=== PATIENT | male | born 1950 | race Caucasian/White ===

== ENCOUNTER → 2018-05-09 | Outpatient (CLI) | payer OTHER | LOC: CARD 08:43 | PROVIDERS: ATTEND Internal Medicine Cardiovascular Disease | DX: I10 Essential (primary) hypertension (principal); E78.1 Pure hyperglyceridemia; J44.9 Chronic obstructive pulmonary disease, unspecified; E66.9 Obesity, unspecified | CPT/HCPCS: 93306 ==

== ENCOUNTER 2018-05-19 20:41 | Outpatient (CLI) | payer OTHER | END 2018-05-20 06:30 | disposition home or self-care (01) | LOC: SLEEP 20:41 | PROVIDERS: ATTEND Internal Medicine Cardiovascular Disease | DX: G47.33 Obstructive sleep apnea (adult) (pediatric) (principal); R06.83 Snoring; I10 Essential (primary) hypertension | CPT/HCPCS: 95810 ==

== ENCOUNTER 2018-06-05 13:42 | Outpatient (CLI) | payer OTHER | END 2018-06-05 14:15 | disposition home or self-care (01) | LOC: SLEEP 13:42 | PROVIDERS: ATTEND Otolaryngology Otolaryngology/Facial Plastic Surgery | DX: G47.33 Obstructive sleep apnea (adult) (pediatric) (principal); R06.83 Snoring; I10 Essential (primary) hypertension ==

== ENCOUNTER 2019-01-31 04:29 | Emergency (ER) | payer OTHER ==
[~2019-01-31] VITALS: Ht 190.5 cm; Wt 138.6 kg
[2019-01-31] MEDS ORDERED: METO1TAB10 (04:48)
[2019-01-31] MEDS ORDERED: LISI30TA5 (04:48)
[2019-01-31] MEDS ORDERED: TETANUS,DIPTH,PERTUSS P/F (BOOSTRIX) 0.5 ML VIAL IM ONE (05:00)
[2019-01-31] MEDS ORDERED: LIDOCAINE 1% INJ 20 ML 20 ML VIAL INJ ONE (05:00)
--- NOTE | 2019-01-31 05:36 | ED Fall/Injury ---
General Chief Complaint: Laceration Stated Complaint: CHIN LAC Nursing Triage Note: 2.5CM LACERATION TO CHIN. DENIES OTHER INJURIES/LOC Source: patient Exam Limitations: no limitations History of Present Illness Date Seen by Provider: Jan 31, 2019 Time Seen by Provider: 05:07 Initial Comments Patient presents to ER by private conveyance with significant other and chief complaint that she must of rolled out of bed in his sleep landing on his chin causing a laceration. He is having a little soreness in his neck but has declined imaging of his head or neck. The was not awake at the time. He is not on blood thinners but he does take blood pressure medicine. He's not having any numbness tenderness to his neck or weakness tingling to his extremities. He has no pain elsewhere. Allergies and Home Medications Allergies Coded Allergies: No Known Drug Allergies (Unverified , 04/28/10) Patient Home Medication List Home Medication List Reviewed: Yes Review of Systems Review of Systems Constitutional: No chills, No diaphoresis Eyes: Denies Blindness, Denies Blurred Vision Ears, Nose, Mouth, Throat: denies ear pain, denies ear discharge Respiratory: No cough, No short of breath Cardiovascular: No chest pain, No edema Gastrointestinal: No abdominal pain, No constipation, No diarrhea Genitourinary: No discharge, No dysuria Musculoskeletal: No back pain, No joint pain Skin: see HPI; No pruritus, No rash Past Rtqsffr-Ovvacy-Wxbqok Hx Patient Social History Alcohol Use: Denies Use Recreational Drug Use: No Smoking Status: Never a Smoker 2nd Hand Smoke Exposure: No Recent Foreign Travel: No Contact w/Someone Who Travel: No Recent Infectious Disease Expo: No Recent Hopitalizations: No Physical Abuse: No Sexual Abuse: No Mistreated: No Fear: No Immunizations Up To Date Tetanus Booster (TDap): More than 5yrs Seasonal Allergies Seasonal Allergies: No Past Medical History Surgeries: Yes Orthopedic Respiratory: No Cardiac: Yes Hypertension Neurological: No Genitourinary: No Gastrointestinal: No Musculoskeletal: No Endocrine: No HEENT: No Cancer: No Psychosocial: No Integumentary: No Blood Disorders: No Physical Exam Vital Signs Vital Signs - First Documented 01/31/19 04:41 Temp 36.8 Pulse 56 Resp 18 B/P (MAP) 178/73 (108) Pulse Ox 94 O2 Delivery Room Air Capillary Refill : Less Than 3 Seconds Height, Weight, BMI Height: 6'3.00" Weight: 285lbs. 0.0oz. 129.568833cd; 38.00 BMI Method: General Appearance: WD/WN, no apparent distress HEENT: PERRL/EOMI, normal ENT inspection, TMs normal, pharynx normal, other (negative for hemotympanum, juarez sign or raccoon eyes. Laceration submental approximately 3 cm, linear into the subcutaneous tissue with minimal bleeding) Neck: non-tender, full range of motion, supple, normal inspection Cardiovascular: normal peripheral pulses, regular rate, rhythm Respiratory: no respiratory distress, no accessory muscle use Peripheral Pulses: 2+ Radial Pulses (R), 2+ Radial Pulses (L) Gastrointestinal: non tender, soft Extremities: normal range of motion, non-tender, normal inspection Neurologic/Psychiatric: jukebox coin collector II-XII nml as tested, no motor/sensory deficits, alert, normal mood/affect, oriented x 3 Skin: normal color, warm/dry [place] Coma Score Best Eye Response: (4) Open Spontaneously Best Verbal Response: (5) Oriented Best Motor Response: (6) Obeys Commands [place] Total: 15 Procedures/Interventions Wound Location: Face Other Wound Location Midline submental Wound Length (cm): 3 Wound's Depth, Shape: linear, sub Q Wound Explored: clean Irrigated w/ Saline (ccs): 100 Betadine Prep?: Yes (chlorhexidine) Anesthesia: 1% Lidocaine Volume Anesthetic (ccs): 3 Wound Debrided: minimal Suture: Prolene Suture Size: 5-0 Number of Sutures: 4 Progress/Results/Core Measures Results/Orders My Orders Orders - RICHARD SANDERS Dipht,Pertuss(Acell),Tet Adult (Boostrix (01/31/19 05:00) Lidocaine 1% Inj 20 Ml (Xylocaine 1% Inj (01/31/19 05:00) Medications Given in ED Current Medications Medications Dose Ordered Sig/Junior Route Start Time Stop Time Status Last Admin Dose Admin Diphtheria/ Tetanus/Acell Pertussis 0.5 ml ONCE ONCE IM 01/31/19 05:00 01/31/19 05:01 DC 01/31/19 05:00 0.5 ML Lidocaine HCl 20 ml ONCE ONCE INJ 01/31/19 05:00 01/31/19 05:01 DC 01/31/19 05:00 20 ML Vital Signs/I&O 01/31/19 04:41 Temp 36.8 Pulse 56 Resp 18 B/P (MAP) 178/73 (108) Pulse Ox 94 O2 Delivery Room Air Blood Pressure Mean: 108 POS Progress Progress Note : Time: 05:[address] of the head and C-spine. Patient was not enthused about the idea just wanted to be sutured up. We discussed risks, benefits and alternatives and he would be reasonable to do an observation for 12 hours by family at home. Tetanus shot will be brought up-to-date today. Plan to use lidocaine and Prolene. Departure Impression Primary Impression: Fall Qualified Codes: W19.XXXA - Unspecified fall, initial encounter Additional Impression: Laceration Disposition: HOME, SELF-CARE Condition: Stable Departure-Patient Inst. Decision time for Depature: 05:48 Referrals: NO,LOCAL PHYSICIAN (PCP/Family) Primary Care Physician Patient Instructions: Laceration Repair With Stitches (DC) Add. Discharge Instructions: Keep the skin clean with regular soap and water. You may dress it if you're going to be in a michelle or dirty environment otherwise open to air is fine. Sutures need to be removed in 10-14 days. You may return to the ER no additional charge or you may go to your primary care doctor. If you have any neurologic symptoms of confusion, difficulty with speech, walking or other worrisome symptoms in the first 12 hours after the fall then you need to return to the ER. All discharge instructions reviewed with patient and/or family. Voiced understanding. RICHARD SANDERS Jan 31, 2019 05:36 POS
--- NOTE | 2019-01-31 05:45 | NUR ---
[address] SANDERS.
[2019-01-31 05:50] VITALS: BP 139/65
--- OUTSIDE RECORDS SUMMARY | 2019-02-25 22:41 | XMS REPORT | Continuity of Care Document ---
Author Organization Unknown Address Unknown Phone Unavailable Allergies Active Description Code Type Severity Reaction Onset Reported/Identified Relationship to Patient Clinical Status Yes No Known Drug Allergies [id number] Drug Allergy Unknown N/A 04/28/2010 Medications There is no data. Problems Date Dx Coded Attending Type Code Diagnosis Diagnosed By 04/28/2010 Ot 214.3 04/28/2010 Ot V76.51 03/25/2014 VERN DALLAS, OC Stewart Ot 571.8 03/25/2014 VERN DALLAS, OC A Ot 574.2 0 03/25/2014 VERN DALLAS, OC A Ot 592.0 03/25/2014 VERN DALLAS, OC A Ot 571.8 03/25/2014 VERN DALLAS, OC A Ot 574.2 0 03/25/2014 VERN DALLAS, OC A Ot 592.0 04/05/2014 VERN DALLAS, OC A Ot 571.8 04/05/2014 VERN DALLAS, OC A Ot 574.2 0 04/05/2014 VERN DALLAS, OC A Ot 592.0 04/07/2014 COSENS DO, GUY L Ot 041. 7 04/07/2014 COSENS DO, GUY L Ot 599. 0 04/07/2014 COSENS DO, GUY L Ot 041. 7 04/07/2014 COSENS DO, GUY L Ot 599. 0 04/08/2014 VERN DALLAS, OC A Ot 571.8 04/08/2014 VERN DALLAS, OC A Ot 574.2 0 04/08/2014 VERN DALLAS, OC A Ot 592.0 04/08/2014 COSENS DO, GUY L Ot 599. 0 04/08/2014 COSENS DO, GUY L Ot 041. 7 04/08/2014 COSENS DO, GUY L Ot 599. 0 04/08/2014 COSENS DO, GUY L Ot 599. 0 04/08/2014 COSENS DO, GUY L Ot 041. 7 04/08/2014 COSENS DO, GUY L Ot 599. 0 04/08/2014 COSENS DO, GUY L Ot 599. 0 04/08/2014 COSENS DO, GUY L Ot 041. 7 04/08/2014 COSENS DO, GUY L Ot 599. 0 04/08/2014 COSENS DO, GUY L Ot 041. 7 04/08/2014 COSENS DO, GUY L Ot 599. 0 04/09/2014 COSENS DO, GUY L Ot 041. 7 04/09/2014 COSENS DO, GUY L Ot 599. 0 04/10/2014 COSENS DO, GUY L Ot 041. 7 04/10/2014 COSENS DO, GUY L Ot 599. 0 04/11/2014 COSENS DO, GUY L Ot 041. 7 04/11/2014 COSENS DO, GUY L Ot 599. 0 04/11/2014 COSENS DO, GUY L Ot 041. 7 04/11/2014 COSENS DO, GUY L Ot 599. 0 04/12/2014 COSENS DO, GUY L Ot 041. 7 04/12/2014 COSENS DO, GUY L Ot 599. 0 04/13/2014 COSENS DO, GUY L Ot 041. 7 04/13/2014 COSENS DO, GUY L Ot 599. 0 05/17/2014 VERN DALLAS, OC Stewart Ot 571.8 05/17/2014 VERN DALLAS, OC A Ot 574.2 0 05/17/2014 VERN DALLAS, OC A Ot 592.0 06/24/2014 COSENS DO, GUY L Ot 599. 0 07/04/2014 COSENS DO, GUY L Ot 041. 7 PSEUDOMONAS INFECT NOS 07/04/2014 COSENS DO, GUY L Ot 599. 0 URIN TRACT INFECTION NOS 07/07/2014 COSENS DO, GUY L Ot 599. 0 07/30/2014 VERN DALLAS, OC Stewart Ot 571.8 07/30/2014 VERN DALLAS, OC Stewart Ot 574.2 0 07/30/2014 VERN DALLAS, OC A Ot 592.0 08/01/2014 COSENS DO, GUY L Ot 599. 0 08/01/2014 COSENS DO, GUY L Ot 041. 7 08/01/2014 COSENS DO, GUY L Ot 599. 0 12/01/2015 COSENS DO, GUY L Ot 599. 0 URIN TRACT INFECTION NOS 12/01/2015 COSENS DO, GUY L Ot 041. 7 PSEUDOMONAS INFECT NOS 12/01/2015 COSENS DO, GUY L Ot 599. 0 URIN TRACT INFECTION NOS 12/01/2015 Ot M79.661 PA IN IN RIGHT LOWER LEG 12/01/2015 Ot R22.41 LOC ALIZED SWELLING, MASS AND LUMP, RIGHT 12/01/2015 COSENS DO, GUY L Ot 599. 0 URIN TRACT INFECTION NOS 12/01/2015 COSENS DO, GUY L Ot 041. 7 PSEUDOMONAS INFECT NOS 12/01/2015 COSENS DO, GUY L Ot 599. 0 URIN TRACT INFECTION NOS 12/01/2015 Ot M79.661 PA IN IN RIGHT LOWER LEG 12/01/2015 Ot R22.41 LOC ALIZED SWELLING, MASS AND LUMP, RIGHT 01/10/2017 COSENS DO, GUY L Ot 599. 0 URIN TRACT INFECTION NOS 01/10/2017 COSENS DO, GUY L Ot 041. 7 PSEUDOMONAS INFECT NOS 01/10/2017 COSENS DO, GUY L Ot 599. 0 URIN TRACT INFECTION NOS 01/10/2017 Ot M79.661 PA IN IN RIGHT LOWER LEG 01/10/2017 Ot R22.41 LOC ALIZED SWELLING, MASS AND LUMP, RIGHT 01/17/2017 COSENS DO, GUY L Ot 599. 0 URIN TRACT INFECTION NOS 01/17/2017 COSENS DO, GUY L Ot 041. 7 PSEUDOMONAS INFECT NOS 01/17/2017 COSENS DO, GUY L Ot 599. 0 URIN TRACT INFECTION NOS 01/17/2017 Ot M79.661 PA IN IN RIGHT LOWER LEG 01/17/2017 Ot R22.41 LOC ALIZED SWELLING, MASS AND LUMP, RIGHT 05/07/2018 COSENS DO, GUY L Ot 599. 0 URIN TRACT INFECTION NOS 05/07/2018 COSENS DO, GUY L Ot 041. 7 PSEUDOMONAS INFECT NOS 05/07/2018 COSENS DO, GUY L Ot 599. 0 URIN TRACT INFECTION NOS 05/07/2018 Ot M79.661 PA IN IN RIGHT LOWER LEG 05/07/2018 Ot R22.41 LOC ALIZED SWELLING, MASS AND LUMP, RIGHT 05/09/2018 COSENS DO, GUY L Ot 599. 0 URIN TRACT INFECTION NOS 05/09/2018 COSENS DO, GUY L Ot 041. 7 PSEUDOMONAS INFECT NOS 05/09/2018 COSENS DO, GUY L Ot 599. 0 URIN TRACT INFECTION NOS 05/09/2018 Ot M79.661 PA IN IN RIGHT LOWER LEG 05/09/2018 Ot R22.41 LOC ALIZED SWELLING, MASS AND LUMP, RIGHT 05/10/2018 ALICIA GAGE MD Ot E66. 9 OBESITY, UNSPECIFIED 05/10/2018 ALICIA GAGE MD Ot E78. 1 PURE HYPERGLYCERIDEMIA 05/10/2018 ALICIA GAGE MD Ot I10 ESSENTIAL (PRIMARY) HYPERTENSION 05/10/2018 ALICIA GAGE MD Ot J44. 9 CHRONIC OBSTRUCTIVE PULMONARY DISEASE, U 05/20/2018 ALICIA GAGE MD Ot G47. 33 OBSTRUCTIVE SLEEP APNEA (ADULT) (PEDIATR 05/20/2018 ALICIA GAGE MD Ot I10 ESSENTIAL (PRIMARY) HYPERTENSION 05/20/2018 ALICIA GAGE MD Ot R06. 83 SNORING 05/22/2018 ALICIA GAGE MD Ot G47. 33 OBSTRUCTIVE SLEEP APNEA (ADULT) (PEDIATR 05/22/2018 ALICIA GAGE MD Ot I10 ESSENTIAL (PRIMARY) HYPERTENSION 05/22/2018 ALICIA GAGE MD Ot R06. 83 SNORING 06/05/2018 WILMAR BLACKWOOD MD Ot G47.33 OBSTRUCTIVE SLEEP APNEA (ADULT) (PEDIATR 06/05/2018 WILMAR BLACKWOOD MD Ot I10 ESSENTIAL (PRIMARY) HYPERTENSION 06/05/2018 WILMAR BLACKWOOD MD Ot R06.83 SNORING 06/06/2018 WILMAR BLACKWOOD MD Ot G47.33 OBSTRUCTIVE SLEEP APNEA (ADULT) (PEDIATR 06/06/2018 WILMAR BLACKWOOD MD Ot I10 ESSENTIAL (PRIMARY) HYPERTENSION 06/06/2018 WILMAR BLACKWOOD MD Ot R06.83 SNORING 08/07/2018 ALICIA GAGE MD Ot E66. 9 OBESITY, UNSPECIFIED 08/07/2018 MERARI DALLAS, ALICIA Caro Ot E78. 1 PURE HYPERGLYCERIDEMIA 08/07/2018 ALICIA GAGE MD Ot I10 ESSENTIAL (PRIMARY) HYPERTENSION 08/07/2018 MERARI DALLAS, ALICIA Caro Ot J44. 9 CHRONIC OBSTRUCTIVE PULMONARY DISEASE, U 08/08/2018 ALICIA GAGE MD Ot E66. 9 OBESITY, UNSPECIFIED 08/08/2018 ALICIA GAGE MD Ot E78. 1 PURE HYPERGLYCERIDEMIA 08/08/2018 ALICIA GAGE MD Ot I10 ESSENTIAL (PRIMARY) HYPERTENSION 08/08/2018 MERARI DALLAS, ALICIA Caro Ot J44. 9 CHRONIC OBSTRUCTIVE PULMONARY DISEASE, U 08/08/2018 ALICIA GAGE MD Ot E66. 9 OBESITY, UNSPECIFIED 08/08/2018 MERARI DALLAS, ALICIA Caro Ot E78. 1 PURE HYPERGLYCERIDEMIA 08/08/2018 ALICIA GAGE MD Ot I10 ESSENTIAL (PRIMARY) HYPERTENSION 08/08/2018 ALICIA GAGE MD Ot J44. 9 CHRONIC OBSTRUCTIVE PULMONARY DISEASE, U 01/31/2019 RICHARD SANDERS MD, Ot I10 ESSENTIAL (PRIMARY) HYPERTENSION 01/31/2019 RICHARD SANDERS MD Ot R40.2142 COMA SCALE, EYES OPEN, SPONTANEOUS, EMR 01/31/2019 RICHARD SANDERS MD Ot R40.2252 COMA SCALE, BEST VERBAL RESPONSE, ORIENT 01/31/2019 RICHARD SANDERS MD Ot R40.2362 COMA SCALE, BEST MOTOR RESPONSE, OBEYS C 01/31/2019 RICHARD SANDERS MD Ot S01.81XA LACERATION W/O FOREIGN BODY OF OTH PART 01/31/2019 RICHARD SANDERS MD Ot W06.XXXA FALL FROM BED, INITIAL ENCOUNTER 01/31/2019 RICHARD SANDERS MD Ot Z23 ENCOUNTER FOR IMMUNIZATION 02/12/2019 COSENS DO, GUY L Ot 599. 0 URIN TRACT INFECTION NOS 02/12/2019 COSENS DO, GUY L Ot 041. 7 PSEUDOMONAS INFECT NOS 02/12/2019 COSENS DO, GUY L Ot 599. 0 URIN TRACT INFECTION NOS 02/12/2019 Ot M79.661 PA IN IN RIGHT LOWER LEG 02/12/2019 Ot R22.41 LOC ALIZED SWELLING, MASS AND LUMP, RIGHT 02/12/2019 ALICIA GAGE MD Ot E66. 9 OBESITY, UNSPECIFIED 02/12/2019 ALICIA GAGE MD Ot E78. 1 PURE HYPERGLYCERIDEMIA 02/12/2019 ALICIA GAGE MD Ot I10 ESSENTIAL (PRIMARY) HYPERTENSION 02/12/2019 ALICIA GAGE MD Ot J44. 9 CHRONIC OBSTRUCTIVE PULMONARY DISEASE, U 02/12/2019 DORON WALL MD Ot S01.81XD LACERATION W/O FOREIGN BODY OF OTH PART 02/12/2019 DORON WALL MD Ot X58.XXXD EXPOSURE TO OTHER SPECIFIED FACTORS, SUB 02/18/2019 COSENS DO, GUY L Ot 599. 0 URIN TRACT INFECTION NOS 02/18/2019 COSENS DO, GUY L Ot 041. 7 PSEUDOMONAS INFECT NOS 02/18/2019 COSENS DO, GUY L Ot 599. 0 URIN TRACT INFECTION NOS 02/18/2019 Ot M79.661 PA IN IN RIGHT LOWER LEG 02/18/2019 Ot R22.41 LOC ALIZED SWELLING, MASS AND LUMP, RIGHT 02/18/2019 ALICIA GAGE MD Ot E66. 9 OBESITY, UNSPECIFIED 02/18/2019 ALICIA GAGE MD Ot E78. 1 PURE HYPERGLYCERIDEMIA 02/18/2019 ALICIA GAGE MD Ot I10 ESSENTIAL (PRIMARY) HYPERTENSION 02/18/2019 ALICIA GAGE MD, Ot J44. 9 CHRONIC OBSTRUCTIVE PULMONARY DISEASE, U Procedures There is no data. Results There is no data. Encounters ACCT No. Visit Date/Time Discharge Status Pt. Type Provider Facility Loc./Unit Complaint [id number] 02/12/2019 08:54:00 019 09:35:00 DIS Emergency DORON WALL MD [facility] ER STITCH REMOVAL [id number] 01/31/2019 04:30:00 019 05:51:00 DIS Emergency RICHRAD SANDERS MD [facility] ER CHIN LAC [id number] 06/05/2018 13:42:00 019 14:19:00 DIS Outpatient MERCED DALLAS, WILMAR Chatman [facility] SLEEP MARYANN G47.33 [id number] 05/19/2018 20:41:00 06:30:00 DIS Outpatient MERARI DALLAS, ALICIA Caro [facility] SLEEP MARYANN G47.33 [id number] 05/09/2018 08:43:00 23:59:59 CLS Outpatient ALICIA GAGE MD [facility] CARD HTN, HYPERTRIGLYCERIDEM IA [id number] 07/05/2014 00:08:00 015 23:59:59 CLS Preadmit GUY ASCENCIO DO [facility] UTI [id number] 04/13/2014 09:44:00 015 23:59:59 CLS [facility]patient [facility] [id number] 04/05/2014 10:21:00 015 23:59:59 CLS Outpatient GUY ASCENCIO DO L [facility] LAB UTI [id number] 04/05/2014 11:33:00 015 11:33:00 CAN Preadmit GUY ASCENCIO DO L [facility] IVTHERAPY [id number] 03/21/2014 08:10:00 015 23:59:59 CLS Outpatient OC PORRAS MD [facility] RAD [id number] 02/04/2015 11:01:00 Document Registration [id number] 04/28/2010 08:58:00 Document Registration
== END 2019-01-31 05:51 | disposition home or self-care (01) ==
LOC: EDUNIT# 04:29 → ER 04:30
DX: S01.81XA Laceration without foreign body of other part of head, initial encounter (principal); I10 Essential (primary) hypertension; R40.2142 Coma scale, eyes open, spontaneous, at arrival to emergency department; R40.2252 Coma scale, best verbal response, oriented, at arrival to emergency department; R40.2362 Coma scale, best motor response, obeys commands, at arrival to emergency department; Z23 Encounter for immunization; W06.XXXA Fall from bed, initial encounter
CPT/HCPCS: 12013; 90471; 90715

== ENCOUNTER 2019-02-12 08:53 | Emergency (ER) | payer OTHER ==
[~2019-02-12] VITALS: Ht 74 cm; Wt 143.5 kg
[~2019-02-12 08:53] MED LIST: LISI30TA5; METO1TAB10
[2019-02-12 09:35] VITALS: BP 176/81
== END 2019-02-12 09:35 | disposition home or self-care (01) ==
LOC: EDUNIT# 08:53 → ER 08:54
DX: S01.81XD Laceration without foreign body of other part of head, subsequent encounter (principal); X58.XXXD Exposure to other specified factors, subsequent encounter

== ENCOUNTER 2019-05-22 08:00 | Inpatient (IN) | payer OTHER, MEDICARE ==
[~2019-05-22] VITALS: Ht 193 cm; Wt 145.0 kg
--- NOTE | 2019-06-26 11:04 | HISTORY AND PHYSICAL ---
DATE OF SERVICE: DATE OF ADMISSION: 07/03/2019 This will be for inpatient admission on 07/03/2019 for left total knee arthroplasty. The patient will require regular inpatient admission due to comorbidities, pain management, need for physical therapy and gait abnormalities. HISTORY: The patient is a 68-year-old gentleman with long-standing progressive left knee pain. He has undergone treatment with extensive measures including injections, anti-inflammatories, arthroscopy without relief. Radiographs revealed severe medial and patellofemoral joint space narrowing and osteophyte formation. He has also undergone physical therapy. He reports activity limitations because of the knee and failure to improve with conservative measures, the patient elected to proceed with surgical intervention. REVIEW OF SYSTEMS: No chest pain, no shortness of breath, no dysuria. PAST MEDICAL HISTORY: Hypertension, sleep apnea, and enlarged heart. PAST SURGICAL HISTORY: Knee and left rotator cuff repair. FAMILY HISTORY: Noncontributory. PRIMARY CARE PROVIDER: None listed. MEDICATIONS: Metoprolol, lisinopril. ALLERGIES: No known drug allergies. SOCIAL HISTORY: The patient denies alcohol and tobacco use. PHYSICAL EXAMINATION: GENERAL: The patient is well developed, well nourished, in no acute distress. HEENT: Normocephalic, atraumatic. Pupils are equal, round, reactive to light. Oropharynx is clear. NECK: Supple, no lymphadenopathy. LUNGS: Clear to auscultation bilaterally. HEART: Regular rate and rhythm. ABDOMEN: Soft, nontender, nondistended. EXTREMITIES: The patient ambulates with an antalgic gait. Range of motion 0/4/120. No varus valgus laxity. Negative anterior and posterior drawer. His patella tracks well. He is tender along his medial joint line. Has pain medially with Jose's. IMPRESSION: Severe left knee osteoarthritis, unresponsive to conservative measures. PLAN: Left total knee arthroplasty. The risks, benefits, options, ramifications and recovery were discussed at length with the patient. He understands and wishes to proceed. Job ID: [id number] DocumentID: [id number] Dictated Date: 06/25/2019 13:44:17 Architectural Renderer Date: 06/25/2019 14:10:56 Dictated By: WILMAR CURRY MD
[2019-06-28] MEDS ORDERED: LISI40TA PO (12:09)
[2019-06-28] MEDS ORDERED: MULT-1136 PO (12:09)
[2019-06-28] MEDS ORDERED: MTP25TSR PO (12:09)
[2019-06-28] MEDS ORDERED: HYDR25TA4 PO (12:09)
[2019-06-28] MEDS ORDERED: VITA1CAP PO (12:09)
[2019-06-28] MEDS ORDERED: POTA99TA21 PO (12:09)
[2019-07-03] VITALS (11 sets, daily range): BP systolic 127–161; BP diastolic 63–106
[2019-07-03] MEDS ORDERED: MIDAZOLAM 2 MG/2 ML (VERSED) VIAL ONE (06:49)
[2019-07-03] MEDS ORDERED: fentaNYL INJECTION 100 MCG/2 ML AMP ONE (06:49)
[2019-07-03] MEDS: LACTATED RINGERS 1,000 ML IV PRN ×2 (07:09→07:55)
[2019-07-03] MEDS ORDERED: CEFUROXIME INJECTION 1,500 MG in WATER (STERILE) FOR INJECTION 15 ML IV ONE (07:15)
--- NOTE | 2019-07-03 07:29 | Progress Note-Pre Operative ---
Pre-Operative Progress Note H&P Reviewed The H&P was reviewed, patient examined and no changes noted. Date Seen by Provider: July 03, 2019 Time Seen by Provider: 07:20 Date H&P Reviewed: July 03, 2019 Time H&P Reviewed: 07:15 Pre-Operative Diagnosis: left knee primary osteoarthritis WILMAR CURRY MD July 03, 2019 07:29
[2019-07-03] MEDS ORDERED: ONDANSETRON 4 MG/2 ML (SDV) Z0FRAN IVP PRN ×2 (07:30→10:00)
[2019-07-03] MEDS ORDERED: diphenhydrAMINE 50 MG/ML INJ (BENADRYL) IVP PRN (07:30)
[2019-07-03] MEDS ORDERED: INTRA-ARTICULAR IU ONE ×5 (07:30)
[2019-07-03] MEDS ORDERED: ACETAMINOPHEN 325 MG TABLET PO PRN (07:30)
[2019-07-03] MEDS ORDERED: CATHETER FLUSH 10 ML SYR IV PRN (07:30)
--- NOTE | 2019-07-03 07:30 | Progress Note-Post Operative ---
Post-Operative Progess Note Surgeon (s)/Infrastructure Engineer (s) Surgeon WILMAR CURRY MD Infrastructure Engineer: Frank Sarah Pre-Operative Diagnosis left knee primary osteoarthritis Post-Operative Diagnosis left knee primary ostreoarthritis Procedure & Operative Findings Date of Procedure 07/03/19 Procedure Performed/Findings left total knee arthroplasty Anesthesia Type GETA Estimated Blood Loss Estimated blood loss (mL): minimal Specimens/Packing Specimens Removed none Packing: none WILMAR CURRY MD July 03, 2019 07:30
[2019-07-03] MEDS ORDERED: OXYC1TAB87 PO (07:31)
--- NOTE | 2019-07-03 07:33 | D/C HH Face to Face Order ---
D/C Face to Face Orders Reconcile Patient Problems Problems Reviewed?: Yes Instructions for Patient [facility], Patient Instructions/FollowUp: three weeks Physician to follow Patient: three weeks Discharge Diet for Home: No Restrictions Patient Data-Allergies,Ht & Wt Patient Allergies: Coded Allergies: No Known Drug Allergies (Unverified , 06/28/19) Height (Feet): 6 Height (Inches): 3.00 Weight (Pounds): 285 Weight (Ounces): 0.0 Home Health Need/Face to Face Date of Face to Face: July 03, 2019 Clinical Findings: Instability, Muscle weakness, Pain with ambulation, Unsteady gait I have seen Pt [id number]: Yes Discharged To: Home Diagnosis/Conditions: left total knee arthroplasty Patient is Homebound due to: Dave fall risk due to instabilty, Muscle weakness, Pain w/ambulation Homebound Status Due to the above stated illness, injury or surgical procedure (medical condition or diagnosis) and associated clinical findings, the patient is homebound because of his/her inability to leave home except with aid of a supportive device and/or person AND leaving the home requires a considerable and taxing effort or is medically contraindicated. Pt req the following assistanc: [facility] Nursing Orders Home Health Services Order: Physical Therapy-Evaluate & Treat DC left knee deneen and apply steristrips 07/17/19 Therapy Orders Therapy Orders: Physical Therapy, PT to assess for OT Therapy Specific Orders: Eval assistive deivces, Teach enviro modifications/safety, Gait training, Increase strength/endurance, Provider maintenance therapy, Restore ROM Certify Stmt I certify that this patient is under my care and that I, a nurse practitioner or a physician; a library media assistant working with me, had a face to face encounter that - meets the physician face to face encounter requirements with this patient as dated. WILMAR CURRY MD July 03, 2019 07:33
[2019-07-03] MEDS ORDERED: oxyCODONE/APAP 5/325MG (PERCOCET 5) TABLET PO PRN (07:45)
[2019-07-03] MEDS ORDERED: HYDROmorphone 2 MG/ML VIAL (DILAUDID) ONE (07:55)
[2019-07-03] MEDS ORDERED: ONDANSETRON 4 MG/2 ML (SDV) Z0FRAN ONE (09:14)
[2019-07-03] MEDS ORDERED: LIDOCAINE PF 2% 5 ML (XYLOCAINE) VIAL ONE (09:14)
[2019-07-03] MEDS ORDERED: meTOprolol 5 MG/5 ML (LOPRESSOR) VIAL ONE ×2 (09:14→10:07)
[2019-07-03] MEDS ORDERED: SEVOFLURANE (ULTANE) 15 ML INHAL SOLN ONE ×5 (09:14→09:16)
[2019-07-03] MEDS ORDERED: BUPIVACAINE 0.5% 30 ML (SENSORCAINE) VIAL ONE (09:28)
[2019-07-03] MEDS ORDERED: diphenhydrAMINE 50 MG/ML INJ (BENADRYL) ONE (09:49)
[2019-07-03] MEDS ORDERED: diphenhydrAMINE 50 MG/ML INJ (BENADRYL) IM PRN (10:00)
[2019-07-03] MEDS ORDERED: HYDROmorphone 2 MG/ML VIAL (DILAUDID) IV ONE (10:00)
[2019-07-03] MEDS ORDERED: meTOprolol 5 MG/5 ML (LOPRESSOR) VIAL IV ONE (10:15)
--- NOTE | 2019-07-03 10:27 | Diagnostic Imaging Report ---
EXAMINATION: Left knee at 1002h. INDICATION: Postop AP and lateral views of the left knee were obtained from the OR. There are no prior studies available for comparison. There is a total knee prosthesis in place. The prosthetic components appear in good position. There is no fracture or acute bony abnormality noted. There is some gas in the soft tissues along the anterior aspect of the knee joint. Skin deneen are also evident. IMPRESSION: Stable post operative left knee. Dictated by: Dictated on workstation # [id number]
--- NOTE | 2019-07-03 10:40 | NUR ---
patient to floor at this time via cart accompanied by BJ Gaffney. This RN will assume care of this patient at this time.
--- NOTE | 2019-07-03 10:40 | NUR ---
SUSANA CEDILLO admitted to room 417-1, with an admitting diagnosis of left total knee replacement, on 07/03/19 from OR via cart, accompanied by BJ rosales.SUSANA CEDILLO introduced to surroundings, call light, bed controls, phone, TV, temperature control, lights, meal times, smoking policy, visitor policy, side rail policy, bathrooms and showers. Patient Rights given to patient in the handbook. SUSANA CEDILLO verbalizes understanding that [facility] is not responsible for the loss or damage to any personal effects or valuables that are kept in the patients posession during their hospitalization. SUSANA CEDILLO verbalizes understanding of Interdisciplinary Patient Education. Patient and/or family were informed about the Rapid Response Team and its purpose.
[2019-07-03] MEDS ORDERED: morphine PCA 100 MG/100 ML BAG IV ONE (10:48)
[2019-07-03] MEDS ORDERED: NS IV 1000 ML 1,000 ML ONE (10:48)
--- NOTE | 2019-07-03 10:56 | Progress Note ---
Standard Progress Note Progress Notes/Assess & Plan Date Seen by a Provider: July 03, 2019 Time Seen by a Provider: 10:54 Progress/Assessment & Plan post op check no complaints radiographs--HW well positioned without fracture LLE--2 plus DP pulse with brisk cap refill. intact DF and PF of toes and ankle with intact sensation to light touch throughout s/p LTKA mobilize as able WILMAR CURRY MD July 03, 2019 10:56
[2019-07-03] MEDS: morphine PCA 100 MG/100 ML BAG IV PRN (11:26)
[2019-07-03] MEDS: SENNA W/DOCUSATE (SENOKOT S) TABLET PO SCH ×2 (12:03→21:04)
[2019-07-03] MEDS: NS IV 1000 ML 1,000 ML IV SCH ×3 (12:03→23:37)
--- NOTE | 2019-07-03 13:56 | Physical Therapy Evaluation ---
PT Evaluation-General Medical Diagnosis Admission Date July 03, 2019 at 06:30 Medical Diagnosis: left TKA Onset Date: July 03, 2019 Therapy Diagnosis Therapy Diagnosis: impaired mobility, strength, endurance, ROM Height/Weight Height (Feet): 6 Height (Inches): 3.00 Weight (Pounds): 285 Weight (Ounces): 0.0 Precautions Precautions/Isolations: Fall Prevention, Standard Precautions Weight Bear Status Left Lower Extremity: Left Weight Bearing/Tolerated Referral Physician: Jorge Reason for Referral: Evaluation/Treatment Medical History Additional Medical History PAST MEDICAL HISTORY: Hypertension, sleep apnea, and enlarged heart. PAST SURGICAL HISTORY: Knee and left rotator cuff repair. Social History Current Living Status: Spouse Entry Into Home: Stairs With Railing PT Steps Into Home: 4 Prior Prior Level of Function SCALE: Activities may be completed with or without assistive devices. 8-Kyxzqobsac-oemvcsd completes the activity by him/herself with no assistance from a helper. 5-Set-up or Clean-up Assistance-helper sets up or cleans up; patient completes activity. [place] assists only prior to or following the activity. 4-Supervision or Touching Assistance-helper provides verbal cues and/or touching/steadying and/or contact guard assistance as patient completes activity . Assistance may be provided throughout the activity or intermittently. 3-Partial/Moderate Assistance-helper does LESS THAN HALF the effort. [place] lifts, holds or supports trunk or limbs, but provides less than half the effort. 2-Substantial/Maximal Assistance-helper does MORE THAN HALF the effort. [place] lifts or holds trunk or limbs and provides more than half the effort. 6-Htmmowuti-wvvoni does ALL the effort. Patient does none of the effort to complete the activity. Or, the assistance of 2 or more helpers is required for the patient to complete the activity. If activity was not attempted, code reason: 7-Patient Refused. 9-Not Applicable-not attempted and the patient did not perform the activity before the current illness, exacerbation or injury. 10-Not Attempted due to Environmental Limitations-(lack of equipment, weather restraints, etc.). 88-Not Attempted due to Medical Conditions or Safety Concerns. Bed Mobility: 6 Transfers (B,C,W/C): 6 Gait: 6 Stairs: 6 Indoor Mobility (Ambulation): Independent Stairs: Independent PT Evaluation-Current Subjective Patient in bed pre tx, agrees to PT, states he doesn't have pain and his left leg is a little numb. Pt/Family Goals to be independent at home Objective Patient Orientation: Person, Place, Situation Attachments: IV ROM/Strength ROM Lower Extremities left knee flexion 70 degrees, extension +5 degrees Sensory Vision: Functional Hearing: Functional Sensation Right Lower Extremit: Intact Sensation Left Lower Extremity: Intact Transfers Roll Left to Right (QC): 6 Sit to Lying (QC): 3 Lying to Sitting/Side of Bed(Q: 3 Sit to Stand (QC): 4 Chair/Fjt-mi-Pxllq Xfer(QC): 4 Toilet Transfer (QC): 4 Patient needs min assist with left leg getting into and out of bed, CGA for transfers, slightly unsteady but no complaints of light headedness or dizziness. Gait Does the Patient Walk?: Yes Mode of Locomotion: Walk Anticipated Mode of Locomotion: Walk Walk 10 feet (QC): 4 Distance: 12'x2 Gait Assistive Device: FWW Comments/Gait Description Patient ambulated to the bathroom and back, slightly unsteady, wide SARA, slow ambulation Wheelchair Training Does the Pt Use a Wheelchair?: No Balance Sitting Static: Normal Sitting Dynamic: Good Standing Static: Fair Standing Dynamic: Fair Treatment supine LLE total knee protocol x10 (AP, QS, HS, SAQ, SLR) Assessment/Needs Patient has impaired mobility, strength, endurance, ROM. He is unsteady during ambulation. Patient in bed post tx with nurse call, phone, tray, all needs met, SCD's on and CPM donned and fit to leg and set to 60/-2 degrees. Rehab Potential: Fair PT Jail Goals Guest Services Director Goals PT Jail Goals Time Frame: July 10, 2019 Roll Left & Right (QC): 6 Sit to Lying (QC): 6 Lying-Sitting on Side/Bed(QC): 6 Sit to Stand (QC): 6 Chair/Uqz-zk-Knctg Xfer(QC): 5 Walk 10 feet (QC): 5 Walk 50ft with 2 Turns (QC): 5 Walk 150 ft (QC): 5 1 Step (curb) (QC): 4 4 Steps (QC): 4 PT Plan Problem List Problem List: Activity Tolerance, Functional Strength, Safety, Balance, Gait, Transfer, Bed Mobility, ROM Treatment/Plan Treatment Plan: Continue Plan of Care Treatment Plan: Bed Mobility, Education, Functional Activity Wicho, Functional Strength, Gait, Safety, Therapeutic Exercise, Transfers Treatment Duration: July 10, 2019 Frequency: 11 times per week Estimated Hrs Per Day: .25 hour per day Patient and/or Family Agrees t: Yes Safety Risks/Education Patient Education: Gait Training, Transfer Techniques, Reviewed Use of Ice, Correct Positioning, Safety Issues Teaching Recipient: Patient Teaching Methods: Demonstration, Discussion Response to Teaching: Reinforcement Needed Discharge Recommendations Plan Patient will perform bed mobility and transfer training, balance and endurance training, functional strengthening, stair training, gait training, and education, to improve functional mobility and independence at home. Therapy Discharge Recommendati: Home & Family Time/GCodes Time In: 1310 Time Out: 1345 Total Billed Treatment Time: 35 Total Billed Treatment 1 visit SUE 15' FA 20' BRENNAN SOSA PT July 03, 2019 13:56
--- NOTE | 2019-07-03 14:20 | OPERATIVE REPORT ---
DATE OF SERVICE: 07/03/2019 PREOPERATIVE DIAGNOSIS: Left knee primary osteoarthritis. POSTOPERATIVE DIAGNOSIS: Left knee primary osteoarthritis. PROCEDURE: Left total knee arthroplasty. SURGEON: Yuan Curry MD HEALTH TECHNICIAN: Frank Concepcion, who assisted throughout the procedure and closed the incision. ANESTHESIA: General endotracheal by Ramya Huffman CRNA. TOURNIQUET TIME: Approximately 75 minutes at 300 mmHg. ESTIMATED BLOOD LOSS: Minimal. DRAINS: None. COMPLICATIONS: None. POSTOPERATIVE PLAN: Routine protocol. The patient was transferred to the recovery room awake and in stable condition. MATERIALS: Microport cemented size 7 femur, cemented size 7 tibia with 10 mm insert and a cemented size 35 patellar button. STATEMENT OF MEDICAL NECESSITY: The patient is a 68-year-old gentleman with progressively worsening left knee pain. He has undergone treatment with injections, arthroscopy, anti-inflammatories and rest without relief. Due to functional impairment and failure to improve with conservative measures, the patient elected to proceed with surgical intervention. DESCRIPTION OF PROCEDURE: After risks and benefits of procedure were discussed and questions were answered, an informed consent was signed and placed on chart. The operative site was confirmed in the preoperative holding area initialed by the surgeon. The patient was then transferred to the operating room and after adequate levels of general endotracheal anesthetic were obtained, a timeout was called, confirming the operative site. Left lower extremity was prepped and draped in the usual sterile fashion. With the leg elevated and the knee flexed, the tourniquet was inflated to 300 mmHg. Standard anterior approach was utilized. Hemostasis was obtained with cautery. Medial parapatellar arthrotomy was performed leaving 1 cm cuff on the patella for later reattachment. A portion of the fat pad was resected. A subperiosteal release was performed on the proximal medial tibia being careful to stay on the bony surface. The ACL was resected. The intramedullary guide was passed into the femoral canal. The distal cutting block was placed and distal cut was made. Femur was sized to a size 7 cutting block was placed parallel to the epicondylar axis and cuts were made from posterior to anterior. Subperiosteal release was then carefully performed on the posterior distal femur, being careful to stay on the bony surface. Intramedullary guide was then passed into the tibia. The cutting block was placed. Drop liana transected the intermalleolar axis and the cut was made. The baseplate was placed and pinned into position. The drop liana transected the intermalleolar axis. This was then prepared with the drill and keel punch. The femoral trial was placed. The trochlear cut was made. The 10 mm insert was placed. The PCL was partially released. The patella was then prepared using the freehand technique by resecting 10 mm off the undersurface. The peg guide was placed and peg holes were drilled. The patellar trial was placed. The patella tracked well. There was no anterior/posterior laxity in flexion or extension. There is no varus valgus laxity in flexion or extension. Full extension was easily obtained, 120 degrees of flexion with gravity was easily obtained. The trials were removed. The joint was irrigated with pulse lavage. Periarticular block was placed in the posterior capsule, medial and lateral retinaculum extensor mechanism in subcutaneous tissues. The bone ends were irrigated and dried. The tibial baseplate was cemented into position. Excessive cement was removed. Superior surface was irrigated and dried. The polyethylene insert was placed. The distal femur was irrigated and dried and the femoral prosthesis was cemented into position. Excessive cement was removed. The knee was brought out into full extension until cement had cured. The undersurface of the patella was irrigated and dried. The patellar button was cemented into position. Excessive cement was removed. Once the cement had cured, the knee was taken through range of motion. Full extension was easily obtained under 20 degrees of flexion with gravity was easily obtained. The patella tracked well. There was no anterior/posterior or medial/lateral laxity in flexion or extension. The joint was further irrigated with pulse lavage. A total of 6 liters was used throughout the procedure. The arthrotomy was closed with #2 Tevdek in rwfrbt-bf-jmyfg interrupted fashion. Knee was flexed and the repair was stable. The subcutaneous tissues were irrigated. A 0 Vicryl was used for the deep subcutaneous tissue, 2-0 Vicryl was used for the superficial subcutaneous tissue, deneen used on the skin. A soft dressing was applied. The tourniquet was deflated. The patient was transferred to the recovery room awake and in stable condition. Job ID: [id number] DocumentID: [id number] Dictated Date: 07/03/2019 09:51:36 Senior Procurement Manager Date: 07/03/2019 14:19:49 Dictated By: YUAN CURRY MD
[2019-07-03] MEDS: CEFUROXIME INJECTION 750 MG in WATER (STERILE) FOR INJECTION 10 ML IV SCH ×2 (14:33→23:37)
[2019-07-03] MEDS: oxyCODONE/APAP 5/325MG (PERCOCET 5) TABLET PO PRN ×2 (16:28→22:49)
[2019-07-04] VITALS: BP 137/79
[2019-07-04 04:05] VITALS: BP 111/71
[2019-07-04 06:08] LABS: HEMOGLOBIN 13.1 G/DL (13.3-17.7)
--- NOTE | 2019-07-04 07:57 | Progress Note ---
Standard Progress Note Progress Notes/Assess & Plan Date Seen by a Provider: July 04, 2019 Time Seen by a Provider: 07:56 Progress/Assessment & Plan post op check no complaints radiographs--HW well positioned without fracture LLE--2 plus DP pulse with brisk cap refill. intact DF and PF of toes and ankle with intact sensation to light touch throughout s/p LTKA mobilize as able Final Diagnosis no complaints Vital Signs Date Time Temp Pulse Resp B/P (MAP) Pulse Ox O2 Delivery O2 Flow Rate FiO2 07/04/19 06:50 18 07/04/19 04:05 37.0 100 21 111/71 (84) 94 NIV CPAP 07/04/19 00:00 36.7 99 21 137/79 (98) 91 Room Air 07/03/19 22:42 18 07/03/19 20:45 Room Air 07/03/19 20:11 37.0 82 20 135/68 (90) 95 Room Air 07/03/19 15:29 37.3 66 20 127/63 (84) 94 Room Air 07/03/19 12:55 92 Room Air 07/03/19 12:36 92 Room Air 3.00 07/03/19 11:16 36.4 58 20 154/77 (102) 93 Room Air 07/03/19 10:40 NIV CPAP 07/03/19 10:40 36.1 20 161/88 (112) 96 NIV CPAP 07/03/19 10:30 NIV CPAP 07/03/19 10:30 20 139/94 (109) 57 NIV CPAP 07/03/19 10:20 20 139/94 (109) 100 OxyMask 3 07/03/19 10:15 OxyMask 6 07/03/19 10:10 20 133/106 (115) 100 OxyMask 6 07/03/19 10:00 OxyMask 6 07/03/19 10:00 20 129/99 (109) 98 OxyMask 6 07/03/19 09:50 20 133/98 (110) 98 OxyMask 6 07/03/19 09:45 OxyMask 6 07/03/19 09:39 36.1 20 128/83 (98) 98 OxyMask 6 07/03/19 09:39 OxyMask 6 I & O 07/04/19 07:00 Intake Total 3235 ml Output Total 175 ml Balance 3060 ml Laboratory Tests Test 07/04/19 05:50 Range/Units Hemoglobin 13.1 L 13.3-17.7 G/DL Hematocrit 41 40-54 % LLE--dressing intact. No calf tenderness. Neg Sofiya's s/p LTKA doing well PT/OT WILMAR CURRY MD July 04, 2019 07:57
[2019-07-04 08:00] VITALS: BP 109/71
[2019-07-04] MEDS: ASPIRIN E.C. 81 MG (ECOTRIN) TAB PO SCH (08:40)
[2019-07-04] MEDS: ENOXAPARIN 30 MG/0.3 ML (LOVENOX) SYR SC SCH ×2 (08:40→21:34)
[2019-07-04] MEDS: MULTIVIT W/MINERALS TAB (THERAGRAN M) PO SCH (08:40)
[2019-07-04] MEDS: SENNA W/DOCUSATE (SENOKOT S) TABLET PO SCH ×2 (08:40→21:34)
[2019-07-04] MEDS: oxyCODONE/APAP 5/325MG (PERCOCET 5) TABLET PO PRN ×2 (08:45→14:46)
--- NOTE | 2019-07-04 09:59 | Physical Therapy Daily Note ---
PT Daily Note-Current Subjective Patient agrees to PT. Pain medication issued prior to PT per RN. Pain Numeric Pain Scale: 7 Location: Left Location Body Site: Knee Pain Description: Acute Mental Status Patient Orientation: Normal For Age Attachments: IV Transfers SCALE: Activities may be completed with or without assistive devices. 8-Mgqvbjhvkc-rfdquwp completes the activity by him/herself with no assistance from a helper. 5-Set-up or Clean-up Assistance-helper sets up or cleans up; patient completes activity. [place] assists only prior to or following the activity. 4-Supervision or Touching Assistance-helper provides verbal cues and/or touching/steadying and/or contact guard assistance as patient completes activity. Assistance may be provided throughout the activity or intermittently. 3-Partial/Moderate Assistance-helper does LESS THAN HALF the effort. [place] lifts, holds or supports trunk or limbs, but provides less than half the effort. 2-Substantial/Maximal Assistance-helper does MORE THAN HALF the effort. [place] lifts or holds trunk or limbs and provides more than half the effort. 7-Qjbacifvo-wlbcsj does ALL the effort. Patient does none of the effort to complete the activity. Or, the assistance of 2 or more helpers is required for the patient to complete the activity. If activity was not attempted, code reason: 7-Patient Refused. 9-Not Applicable-not attempted and the patient did not perform the activity before the current illness, exacerbation or injury. 10-Not Attempted due to Environmental Limitations-(lack of equipment, weather restraints, etc.). 88-Not Attempted due to Medical Conditions or Safety Concerns. Roll Left & Right (QC): 5 Lying to Sitting/Side of Bed(Q: 4 Sit to Stand (QC): 4 Chair/Gex-dq-Flkpm Xfer(QC): 4 CGA for safety Weight Bearing Left Lower Extremity: Left Weight Bearing/Tolerated Gait Training Does the Patient Walk?: Yes Distance: 225' Walk 10 feet (QC): 5 Walk 50 ft with 2 Turns(QC): 5 Walk 150 ft (QC): 5 Gait Assistive Device: FWW decreased step length and goran Exercises Supine Ex: Ankle pumps, Quad Set, Heel Slides, Straight leg raise Supine Reps: 12 (AAROM left LE) Seated Therapy Exercises: Long arc quads Seated Reps: 12 Assessment Patient tolerated treatment well and is up in recliner with needs met. PT to increase activity as tolerated by patient. Plan dismissal to home tomorrow. 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 Goals [facility] Goals PT [facility] Goals Time Frame: July 10, 2019 Roll Left & Right (QC): 6 Sit to Lying (QC): 6 Lying-Sitting on Side/Bed(QC): 6 Sit to Stand (QC): 6 Chair/Hqv-bc-Rjqbz Xfer(QC): 5 Walk 10 feet (QC): 5 Walk 50ft with 2 Turns (QC): 5 Walk 150 ft (QC): 5 1 Step (curb) (QC): 4 4 Steps (QC): 4 PT Plan Treatment/Plan Treatment Plan: Continue Plan of Care Treatment Plan: Bed Mobility, Education, Functional Activity Wicho, Functional Strength, Gait, Safety, Therapeutic Exercise, Transfers Treatment Duration: July 10, 2019 Frequency: 11 times per week Estimated Hrs Per Day: .25 hour per day Patient and/or Family Agrees t: Yes Time/GCodes Time In: 844 Time Out: 913 Total Billed Treatment Time: 29 Total Billed Treatment 1 visit EX 14 min GT 15 min ILEANA FRIED PT July 04, 2019 09:59
--- NOTE | 2019-07-04 11:07 | NUR ---
CM/SS visited with the patient for social service consult. Plan: The patient will return home with home health and a bariatric walker. Home Health: The patient was provided with a patient preference form. He chose [facility]. CM/SS contacted Kobe for [facility] to notify of referral. This ss faxed over referral. He verbalized understanding. Plan is to start services on Monday. DME: The patient was provided a patient preference form. He chose [facility]. CM/SS contacted the agency and faxed the script, H&P, and face sheet. They verbally verified they received the information. Jacki from the DME stated they will deliver to the hospital today 07/03. CM/SS will continue to follow.
[2019-07-04 12:00] VITALS: BP 102/67
[2019-07-04] MEDS: NS IV 1000 ML 1,000 ML IV SCH ×2 (12:15→23:25)
--- NOTE | 2019-07-04 12:37 | NUR ---
PT UP TO BATHROOM URINATED 10CC IN URINAL. BLADDER SCANNED WITH 38CC PRESENT. ROLANDA GEE NOTIFIED ORDER RECEIVED TO INCREASE FLUIDS TO 100CC/HR. MARLEN- STATED WOULD NOTIFY DR CURRY AND IF BLADDER SCANNER CONTINUED TO SHOW MINIMAL URINE IN BLADDER THAT DR CURRY WOULD SEE PT IN THE AM AND ADDRESS.
--- NOTE | 2019-07-04 14:08 | Physical Therapy Daily Note ---
PT Daily Note-Current Subjective Patient agrees to PT. Pain Numeric Pain Scale: 5-Moderate Pain Location: Left Location Body Site: Knee Pain Description: Acute Mental Status Patient Orientation: Normal For Age Attachments: IV Transfers SCALE: Activities may be completed with or without assistive devices. 1-Pruicjnpqh-rzhgbuh completes the activity by him/herself with no assistance from a helper. 5-Set-up or Clean-up Assistance-helper sets up or cleans up; patient completes activity. [place] assists only prior to or following the activity. 4-Supervision or Touching Assistance-helper provides verbal cues and/or touching/steadying and/or contact guard assistance as patient completes activity. Assistance may be provided throughout the activity or intermittently. 3-Partial/Moderate Assistance-helper does LESS THAN HALF the effort. [place] lifts, holds or supports trunk or limbs, but provides less than half the effort. 2-Substantial/Maximal Assistance-helper does MORE THAN HALF the effort. [place] lifts or holds trunk or limbs and provides more than half the effort. 7-Wblsgcqyb-nputrt does ALL the effort. Patient does none of the effort to complete the activity. Or, the assistance of 2 or more helpers is required for the patient to complete the activity. If activity was not attempted, code reason: 7-Patient Refused. 9-Not Applicable-not attempted and the patient did not perform the activity before the current illness, exacerbation or injury. 10-Not Attempted due to Environmental Limitations-(lack of equipment, weather restraints, etc.). 88-Not Attempted due to Medical Conditions or Safety Concerns. Roll Left & Right (QC): 5 Sit to Lying (QC): 4 Sit to Stand (QC): 5 Weight Bearing Left Lower Extremity: Left Weight Bearing/Tolerated Gait Training Does the Patient Walk?: Yes Distance: 250' Walk 10 feet (QC): 6 Walk 50 ft with 2 Turns(QC): 6 Walk 150 ft (QC): 6 Gait Assistive Device: FWW step to, antalgic gait sequence Treatments CPM 0-70 degrees with polar pack in place Assessment Patient progressing with treatment plan and will dismiss to home tomorrow. PT Residential Goals Promotions Officer Goals PT Residential Goals Time Frame: July 10, 2019 Roll Left & Right (QC): 6 Sit to Lying (QC): 6 Lying-Sitting on Side/Bed(QC): 6 Sit to Stand (QC): 6 Chair/Psa-pi-Xqvke Xfer(QC): 5 Walk 10 feet (QC): 5 Walk 50ft with 2 Turns (QC): 5 Walk 150 ft (QC): 5 1 Step (curb) (QC): 4 4 Steps (QC): 4 PT Plan Treatment/Plan Treatment Plan: Continue Plan of Care Treatment Plan: Bed Mobility, Education, Functional Activity Wicho, Functional Strength, Gait, Safety, Therapeutic Exercise, Transfers Treatment Duration: July 10, 2019 Frequency: 11 times per week Estimated Hrs Per Day: .25 hour per day Patient and/or Family Agrees t: Yes Time/GCodes Time In: 1325 Time Out: 1340 Total Billed Treatment Time: 15 Total Billed Treatment 1 visit GT 15 min ILEANA FRIED PT July 04, 2019 14:08
--- NOTE | 2019-07-04 14:48 | Occupational Therapy Eval ---
OT Evaluation-General/PLF Medical Diagnosis Admission Date July 03, 2019 at 06:30 Medical Diagnosis: left TKA Onset Date: July 03, 2019 Therapy Diagnosis Therapy Diagnosis: Decreased ADL skills Height/Weight Height (Feet): 6 Height (Inches): 3.00 Weight (Pounds): 285 Weight (Ounces): 0.0 Precautions Precautions/Isolations: Fall Prevention, Standard Precautions Weight Bear Status Weight Bearing Restriction: Weight Bearing/Tolerated Referral Physician: Jorge Referral Reason: Activity Tolerance, Self Care, Evaluation/Treatment, Strengthening/ROM Medical History Pertinent Medical History: HTN Additional Medical History Enlarged heart, Left RCR Current History Elective knee surgery Reviewed History: Yes Social History Home: Single Level Current Living Status: Spouse Entry Into Home: Stairs With Railing Steps Into Home: 4 ADL-Prior Level of Function SCALE: Activities may be completed with or without assistive devices. 7-Tjtndbjwqv-backwoz completes the activity by him/herself with no assistance from a helper. 5-Set-up or Clean-up Assistance-helper sets up or cleans up; patient completes activity. [place] assists only prior to or following the activity. 4-Supervision or Touching Assistance-helper provides verbal cues and/or touching/steadying and/or contact guard assistance as patient completes activity. Assistance may be provided throughout the activity or intermittently. 3-Partial/Moderate Assistance-helper does LESS THAN HALF the effort. [place] lifts, holds or supports trunk or limbs, but provides less than half the effort. 2-Substantial/Maximal Assistance-helper does MORE THAN HALF the effort. [place] lifts or holds trunk or limbs and provides more than half the effort. 7-Tbtaokqmb-nwcynk does ALL the effort. Patient does none of the effort to complete the activity. Or, the assistance of 2 or more helpers is required for the patient to complete the activity. If activity was not attempted, code reason: 7-Patient Refused. 9-Not Applicable-not attempted and the patient did not perform the activity before the current illness, exacerbation or injury. 10-Not Attempted due to Environmental Limitations-(lack of equipment, weather restraints, etc.). 88-Not Attempted due to Medical Conditions or Safety Concerns. ADL PLOF Comments Pt. reports that he was independent with daily tasks prior to this hospit alization. Self Care: Independent Functional Cognition: Independent DME/Equipment: Bath Bench, Shower, Tub/Shower DME/Equipment Comments Pt. reports that he has a quad cane, a walker, and elevated toilets. 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 reports that he does not have pain in knee when lying in bed, but does when he moves. Does not report pain number. Appearance Pt. in bed. Agreeable to work with OT. Mental Status/Objective Patient Orientation: Person, Place, Time, Situation Attachments: IV Current Glasses/Contacts: Yes Upper Extremity ROM WFL ADL-Treatment Shower/Bathe Self (QC): 7 (Pt. declines bathing at this time stating, "I will just get really sweatty when I walk later.") Lower Body Dressing (QC): 3 (Pt. requires assistance to don shorts over left LE while seated on side of bed. Pt. able to don over right LE. SBA in stance to don over hips.) On/Off Footwear (QC): 2 (Pt. unable to reach feet to doff/don slipper socks.) Other Treatments Pt. transferred supine-sit with mod assistance. Required assist to move left LE, as this was difficulty. Pt. able to scoot to EOB. Practiced LE dressing/footwear. Pt. had difficulty with this and so adaptive equipment was brought into room and pt. educated on it. Pt. verbalizes that he has not had a BM yet, and so does not know if he will have difficulty cleansing self. OT brought in toilet tongs and educated pt. on use for later. Pt. is able to stand at EOB with min assist for sit-stand. Good balance noted with walker. Pt. transferred back to side of bed and all needs met. PT came in at this time to ambulate with pt. Will complete ADL training at next session. Education OT Patient Education: Correct positioning, Modified ADL techniques, Progress toward Goal/Update tx plan, Purpose of tx/functional activities, Reviewed precautions, Rehab process, Transfer techniques, Use of adapted equipment Teaching Recipient: Patient Teaching Methods: Demonstration, Discussion Response to Teaching: Verbalize Understanding, Return Demonstration OT Glass Blower Helper Goals Glass Blower Helper Goals Time Frame: July 11, 2019 Eating (QC): 6 Oral Hygiene (QC): 6 Toileting Hygiene (QC): 6 Shower/Bathe Self (QC): 4 Upper Body Dressing (QC): 6 Lower Body Dressing (QC): 6 On/Off Footwear (QC): 6 Additional Goals: 1-Demonstrate ADL Tasks, 2-Verbalize Understanding, 3- ImproveStrength/[place] 1=Demonstrate adherence to instructed precautions during ADL tasks. 2=Patient will verbalize/demonstrate understanding of assistive devices/modifications for ADL. 3=Patient will improve strength/tolerance for activity to enable patient to perform ADL's. OT Education/Plan Problem List/Assessment Assessment: Decreased Activ Tolerance, Dependent Transfers, Impaired Bed Mobility, Impaired I ADL's, Impaired Self-Care Skills Discharge Recommendations Plan/Recommendations: Continue POC Therapy Discharge Recommendati: Home & Family, Post Acute OT Equpiment Recommendations-D/C: Hip Kit Treatment Plan/Plan of Care Treatment,Training & Education: Yes Patient would benefit from OT for education, treatment and training to promote independence in ADL's, mobility, safety and/or upper extremity function for ADL's. Plan of Care: ADL Retraining, Functional Mobility Treatment Duration: July 11, 2019 Frequency: 5 times per week Estimated Hrs Per Day: .25 hour per day Agreement: Yes Rehab Potential: Good Time/GCodes Start Time: 13:00 Stop Time: 13:25 Total Time Billed (hr/min): 25 Billed Treatment Time 1, EVM x 15minutes, ADL x 15minutes SANDHYA HU OT July 04, 2019 14:48
--- NOTE | 2019-07-04 14:57 | Anesthesia-General Post-Op ---
General Patient Condition Mental Status/LOC: Same as Preop Cardiovascular: Satisfactory Nausea/Vomiting: Absent Respiratory: Satisfactory Pain: Controlled Complications: Absent Post Op Complications Complications None Follow Up Care/Instructions Patient Instructions None needed. Anesthesia/Patient Condition Patient Condition Patient is doing well, C/O knee pain which is to be expected but is under control, stable vital signs, no apparent adverse anesthesia problems. URIEL MATTHEWS DO July 04, 2019 14:57
[2019-07-04 16:57] VITALS: BP 110/65
--- NOTE | 2019-07-04 19:12 | NUR ---
PT UP TO BATHROOM URINATED 160CC OF DARK SUMMER URINE. BLADDER SCANNED WITH 191CC PRESENT. DR CURRY NOTIFIED VIA PHONE. GAVE ORDERS TO KEEP MONITORING PT OUTPUT AND TO STRAIT CATH IF BLADDER SCANNER SHOWS >400CC PRESENT.
[2019-07-04] MEDS: morphine PCA 100 MG/100 ML BAG IV PRN (19:45)
--- NOTE | 2019-07-04 19:48 | NUR ---
25CC OF MORPHINE FROM INSIDE SALES TRAINER WASTED WITH CONSTANTINE RAMÍREZ RN
--- NOTE | 2019-07-04 19:51 | DISCHARGE SUMMARY ---
DATE OF SERVICE: DATE OF DISCHARGE: 07/05/2019. DIAGNOSES: 1. Left knee primary osteoarthritis. 2. Hypertension. 3. Sleep apnea. 4. Enlarged heart. PROCEDURE: Left total knee arthroplasty. SUMMARY: The patient is a 68-year-old gentleman who underwent a left total knee arthroplasty on the day of admission. Postoperatively, he did very well. At time of discharge, his wound was clean and dry. Had no calf tenderness. Negative Homans sign. He was tolerating his diet well and tolerating pain with oral pain medication. CONDITION AT DISCHARGE: Good. DISCHARGE DIET: Regular. FOLLOWUP: Followup is in three weeks. ACTIVITIES: Weightbearing as tolerated with assistive devices as needed. DISCHARGE MEDICATIONS: Home medications, Percocet as needed for pain and aspirin one per day for 30 days. Job ID: [id number] DocumentID: [id number] Dictated Date: 07/04/2019 16:51:02 Sizing Machine Tender Date: 07/04/2019 19:50:28 Dictated By: WILMAR CURRY MD
[2019-07-04 20:16] VITALS: BP 108/67
[2019-07-05 00:15] VITALS: BP 129/74
[2019-07-05 04:25] VITALS: BP 105/70
[2019-07-05] MEDS: MULTIVIT W/MINERALS TAB (THERAGRAN M) PO SCH (06:19)
--- NOTE | 2019-07-05 07:09 | Progress Note ---
Standard Progress Note Progress Notes/Assess & Plan Date Seen by a Provider: July 05, 2019 Time Seen by a Provider: 07:05 Progress/Assessment & Plan post op check no complaints radiographs--HW well positioned without fracture LLE--2 plus DP pulse with brisk cap refill. intact DF and PF of toes and ankle with intact sensation to light touch throughout s/p LTKA mobilize as able Final Diagnosis no complaints Vital Signs Date Time Temp Pulse Resp B/P (MAP) Pulse Ox O2 Delivery O2 Flow Rate FiO2 07/05/19 06:20 20 07/05/19 04:25 36.8 98 20 105/70 (82) 93 NIV CPAP 07/05/19 00:15 36.6 109 20 129/74 (92) 92 NIV CPAP 07/04/19 21:35 Room Air 07/04/19 20:16 36.2 99 17 108/67 (81) 91 Room Air 07/04/19 18:42 18 07/04/19 17:45 36.3 07/04/19 16:57 35.1 95 16 110/65 (80) 97 Room Air 07/04/19 12:00 36.0 89 18 102/67 (79) 95 Room Air 07/04/19 09:00 97 Room Air 07/04/19 08:00 36.4 106 18 109/71 (84) 96 Room Air I & O 07/05/19 07:00 Intake Total 2350 ml Output Total 510 ml Balance 1840 ml Laboratory Tests Test 07/05/19 06:19 Range/Units Hemoglobin 14.0 13.3-17.7 G/DL Hematocrit 43 40-54 % Creatinine 2.48 H 0.60-1.30 MG/DL LLE--incision clean and dry. No calf tenderness. Neg Sofiya's s/p LTKA with urinary retention PT/OT today will consult Dr Ames re UOP Home later if ok with him WILMAR CURRY MD July 05, 2019 07:09
[2019-07-05 07:24] LABS: POTASSIUM 3.7 MMOL/L (3.6-5.0)
[2019-07-05 07:25] LABS: CALCIUM 8.3 MG/DL (8.5-10.1)
[2019-07-05 07:26] LABS: TOTAL PROTEIN 7.9 GM/DL (6.4-8.2)
[2019-07-05 07:28] LABS: BILIRUBIN,TOTAL 1.2 MG/DL (0.1-1.0)
[2019-07-05 07:30] LABS: CREATININE SERUM 2.52 MG/DL (0.60-1.30)
[2019-07-05] MEDS: SENNA W/DOCUSATE (SENOKOT S) TABLET PO SCH ×2 (07:46→20:23)
[2019-07-05] MEDS: ASPIRIN E.C. 81 MG (ECOTRIN) TAB PO SCH (07:46)
[2019-07-05] MEDS: ENOXAPARIN 30 MG/0.3 ML (LOVENOX) SYR SC SCH ×2 (07:47→20:23)
[2019-07-05] MEDS: oxyCODONE/APAP 5/325MG (PERCOCET 5) TABLET PO PRN ×6 (07:47→20:22)
[2019-07-05 07:59] VITALS: BP 107/68
--- NOTE | 2019-07-05 09:50 | Physical Therapy Daily Note ---
PT Daily Note-Current Subjective Patient agrees to PT. No c/o. Pain Numeric Pain Scale: 5-Moderate Pain Location: Left Location Body Site: Knee Pain Description: Acute Mental Status Patient Orientation: Normal For Age Transfers SCALE: Activities may be completed with or without assistive devices. 4-Gyrdbwopiu-msrzdhk completes the activity by him/herself with no assistance from a helper. 5-Set-up or Clean-up Assistance-helper sets up or cleans up; patient completes activity. [place] assists only prior to or following the activity. 4-Supervision or Touching Assistance-helper provides verbal cues and/or touching/steadying and/or contact guard assistance as patient completes activity. Assistance may be provided throughout the activity or intermittently. 3-Partial/Moderate Assistance-helper does LESS THAN HALF the effort. [place] lifts, holds or supports trunk or limbs, but provides less than half the effort. 2-Substantial/Maximal Assistance-helper does MORE THAN HALF the effort. [place] lifts or holds trunk or limbs and provides more than half the effort. 3-Frfdvyxwb-awkcqz does ALL the effort. Patient does none of the effort to complete the activity. Or, the assistance of 2 or more helpers is required for the patient to complete the activity. If activity was not attempted, code reason: 7-Patient Refused. 9-Not Applicable-not attempted and the patient did not perform the activity before the current illness, exacerbation or injury. 10-Not Attempted due to Environmental Limitations-(lack of equipment, weather restraints, etc.). 88-Not Attempted due to Medical Conditions or Safety Concerns. Roll Left & Right (QC): 6 Lying to Sitting/Side of Bed(Q: 6 Sit to Stand (QC): 6 Chair/Azr-er-Izyqv Xfer(QC): 6 Weight Bearing Left Lower Extremity: Left Weight Bearing/Tolerated Gait Training Does the Patient Walk?: Yes Distance: 200' x 2 Walk 10 feet (QC): 6 Walk 50 ft with 2 Turns(QC): 6 Walk 150 ft (QC): 6 Gait Assistive Device: FWW antalgic, functional gait sequence Stair Training Stair Training: Handrails/: 2 handrails #of Steps: 2 1 Step (curb) (QC): 5 Stairs: Pattern: Step to Exercises Supine Ex: Ankle pumps, Quad Set, Heel Slides, Straight leg raise Supine Reps: 15 Assessment Patient tolerated treatment well and is up in recliner with needs met. Patient to dismiss to home on this date. PT Mcfp Goals Mcfp Goals PT Mcfp Goals Time Frame: July 10, 2019 Roll Left & Right (QC): 6 Sit to Lying (QC): 6 Lying-Sitting on Side/Bed(QC): 6 Sit to Stand (QC): 6 Chair/Bgp-pw-Ociww Xfer(QC): 5 Walk 10 feet (QC): 5 Walk 50ft with 2 Turns (QC): 5 Walk 150 ft (QC): 5 1 Step (curb) (QC): 4 4 Steps (QC): 4 PT Plan Treatment/Plan Treatment Plan: Discontinue PT Treatment Plan: Bed Mobility, Education, Functional Activity [place], Functional Strength, Gait, Safety, Therapeutic Exercise, Transfers Treatment Duration: July 10, 2019 Frequency: 11 times per week Estimated Hrs Per Day: .25 hour per day Patient and/or Family Agrees t: Yes Time/GCodes Time In: 825 Time Out: 855 Total Billed Treatment Time: 30 Total Billed Treatment 1 visit EX 18 min GT 12 min ILEANA FRIED PT July 05, 2019 09:50
--- NOTE | 2019-07-05 10:00 | NUR ---
DC'D DINING MANAGER. 80 CC MORPHINE IV DINING MANAGER WASTED WITH JACI LORENZO.
--- NOTE | 2019-07-05 10:44 | NUR ---
CM/SS follow up. The patient was getting dressed and ready for discharge with the nurse and aide. He verbalized that he is ready to go home today. CM/SS informed him that Dr. Mart will visit the patient. He verbalized understanding. The shahla walker was in the patients room and his home health is set up for Monday with [facility]. Addendum: 07/05/19 at 1118 by JUAN HAWK Patient will not be discharging today. Plan for discharge tomorrow. CM/SS notified home health. They will still plan to start on Monday. No further needs.
--- NOTE | 2019-07-05 11:00 | Occ Therapy Progress Note ---
Therapy Progress Note Attempted OT treatment at 1038. Pt sitting in chair, states he has already showered and dressed this morning with minimal assistance from nursing for LE. Pt states he is just waiting to go home. Pt declined adaptive equipment training, states he won't use it at home as he will have family to assist as needed. Pt declined to participate in any ADLs at this time. Education provided regarding ADL safety. Pt states understanding of education and has no questions or concerns at this time. Pt sitting in chair with needs met. 1, visit. YANELI WORRELL OT July 05, 2019 11:00
--- NOTE | 2019-07-05 11:20 | Consultation - Hospitalist ---
HPI History of Present Illness: HPI/Chief Complaint pt is a 68yoCM with a PMH of HTN and OA who was admitted for TKA due to left knee osteoarthritis. I am consulted for medical management of JUNAA. His creatinine last week was 1.12 and this morning his creatinine is 2.48.He has not complaints. Overnight he had some urinary retention and urology was consulted. His symptoms have improved and he is requesting discharge home. Discussed options of follow up with his PCP at [facility] for labs or continued admission for fluids and labs in the AM. He originally requested discharge home with follow up tomorrow but he ultimately decided to stay. No other complaints or concerns. Doing well with PT. Source: patient Exam Limitations: no limitations Date Seen 07/05/19 Attending Physician Yuan Patel MD PCP No,Local Physician Referring Physician Date of Admission July 03, 2019 at 06:30 Home Medications & Allergies Home Medications Reviewed patient Home Medication Reconciliation performed by pharmacy medication reconciliations veterinary technician and/or nursing. Patients Allergies have been reviewed. Allergies Allergies Coded Allergies No Known Drug Allergies (Unverified07/03/19) Past Osfvoxy-Inxokc-Cwjodt Hx Past Med/Social Hx: Reviewed Nursing Past Med/Soc Hx Patient Social History Alcohol Use: Rarely Uses Number of Drinks Today: 0 Recreational Drug Use: No Smoking Status: Former Smoker Former Smoker, Quit: June 27, 1976 2nd Hand Smoke Exposure: No Physical Abuse Screen: No Sexual Abuse: No Recent Foreign Travel: No Contact w/other who traveled: No Recent Hopitalizations: No Recent Infectious Disease Expo: No Immunizations Up To Date Tetanus Booster (TDap): More than 5yrs Seasonal Allergies Seasonal Allergies: Yes Past Medical History Surgeries: Orthopedic Currently Using CPAP: Yes Currently Using BIPAP: No Cardiac: Hypertension Sexually Transmitted Disease: No HIV/AIDS: No Musculoskeletal: Arthritis Loss of Vision: Denies Hearing Impairment: Denies History of Blood Disorders: No Adverse Reaction to Blood Oswald: No (N/A) Family History Patient reports no known family medical history. Review of Systems Constitutional: No chills, No fever Cardiovascular: no symptoms reported Gastrointestinal: no symptoms reported Genitourinary: see HPI Musculoskeletal: joint pain Skin: rash (from tape) Physical Exam Physical Exam Vital Signs Vital Signs - First Documented Capillary Refill : Less Than 3 SecondsLess Than 3 Seconds Height, Weight, BMI Height: 6'3.00" Weight: 285lbs. 0.0oz. 129.015266vf; 38.92 BMI Method: General Appearance: No Apparent Distress, WD/WN, Obese Respiratory: Lungs Clear, No Accessory Muscle Use, No Respiratory Distress Cardiovascular: Regular Rate, Rhythm, No Murmur Gastrointestinal: Normal Bowel Sounds, Non Tender, Soft Extremity: No Calf Tenderness, No Pedal Edema Neurologic/Psychiatric: Alert, Oriented x3, Normal Mood/Affect Results Results/Procedures Labs Laboratory Tests 07/04/19 05:50 07/05/19 06:19 Patient resulted labs reviewed. Assessment/Plan Assessment and Plan Assess & Plan/Chief Complaint JUANA- likely multifactorial from volume depletion and retention HTN Flomax added IVF fluids Monitor I/Os Check BMP in AM Hold home HCTZ and VITO-I Osteoarthritis s/p TKA PT/OT Pain control Management per primary Clinical Quality Measures DVT/VTE Risk/Contraindication: Risk Factor Score Per Nursin RFS Level Per Nursing on Admit: 4+=Very High JOHNNY HERNANDEZ MD July 05, 2019 11:20
[2019-07-05] MEDS: NS IV 1000 ML 1,000 ML IV SCH ×3 (11:45→20:22)
--- NOTE | 2019-07-05 11:59 | NUR ---
IRF Evaluation Order received to evaluate patient for the ARU. Chart review complete and it appears patient is ambulating (200ft x2, FWW) and transferring with independence; therefore, patient does not require intensive therapies. Thank you for this referral.
[2019-07-05 12:00] VITALS: BP 118/68
--- NOTE | 2019-07-05 12:26 | CONSULTATION REPORT ---
DATE OF SERVICE: 07/05/2019 ATTENDING PHYSICIAN: Dr. Patel. SUMMARY: A 68-year-old white man recovering from a left total knee replacement 2 days ago. His creatinine today showed up to 2.5. The patient denies any voiding symptoms; however, he is not voiding enough and is not taking enough liquids. He just voided 400+ mL. There was no discomfort. Bladder scanner runs under 200 mL. He is on no prostate medicines and did not have any surgeries. Prior to that, I saw him quite a few years ago,last time 5 years ago. IMPRESSION: 1. BPH. 2. Renal insufficiency, most probably prerenal. PLAN: Okay to discharge myers, I will start him on Flomax. We will leave up to Dr. Rivas hydration to correct his creatinine. When I see him back in the office next week, I will repeat his basic metabolic panel and work him up to make sure he empties well and does not have any significant prostatism. The plan was fully explained to the patient. Job ID: [id number] DocumentID: [id number] Dictated Date: 07/05/2019 09:57:49 Dolly Operator Date: 07/05/2019 12:25:46 Dictated By: OC PORRAS MD
[2019-07-05] MEDS: morphine INJ 4 MG/ML 1 ML (VIAL/SYRINGE) IVP PRN ×3 (13:28→17:53)
--- NOTE | 2019-07-05 14:36 | Physical Therapy Daily Note ---
PT Daily Note-Current Subjective Patient reports he had to stay due to his kidney function. Agrees to PT. Pain Numeric Pain Scale: 5-Moderate Pain Location: Left Location Body Site: Knee Pain Description: Acute Mental Status Patient Orientation: Normal For Age Attachments: IV Transfers SCALE: Activities may be completed with or without assistive devices. 9-Jczxhklcbk-hhvzwim completes the activity by him/herself with no assistance from a helper. 5-Set-up or Clean-up Assistance-helper sets up or cleans up; patient completes activity. [place] assists only prior to or following the activity. 4-Supervision or Touching Assistance-helper provides verbal cues and/or touching/steadying and/or contact guard assistance as patient completes activity. Assistance may be provided throughout the activity or intermittently. 3-Partial/Moderate Assistance-helper does LESS THAN HALF the effort. [place] lifts, holds or supports trunk or limbs, but provides less than half the effort. 2-Substantial/Maximal Assistance-helper does MORE THAN HALF the effort. [place] lifts or holds trunk or limbs and provides more than half the effort. 8-Nfdpgdndv-beqzvr does ALL the effort. Patient does none of the effort to complete the activity. Or, the assistance of 2 or more helpers is required for the patient to complete the activity. If activity was not attempted, code reason: 7-Patient Refused. 9-Not Applicable-not attempted and the patient did not perform the activity before the current illness, exacerbation or injury. 10-Not Attempted due to Environmental Limitations-(lack of equipment, weather restraints, etc.). 88-Not Attempted due to Medical Conditions or Safety Concerns. Roll Left & Right (QC): 6 Sit to Lying (QC): 6 Lying to Sitting/Side of Bed(Q: 6 Sit to Stand (QC): 6 Weight Bearing Left Lower Extremity: Left Weight Bearing/Tolerated Gait Training Does the Patient Walk?: Yes Distance: 375' Walk 10 feet (QC): 6 Walk 50 ft with 2 Turns(QC): 6 Walk 150 ft (QC): 6 Gait Assistive Device: FWW slow, antalgic, step to gait sequence Exercises Supine Ex: Ankle pumps, Quad Set, Heel Slides, Straight leg raise Supine Reps: 12 Assessment Patient tolerated treatment well and returned to bed with polar pack in place. Plan to dismiss to home tomorrow. PT Half-Way Goals Waiter/Waitress Tourist Class Goals PT Half-Way Goals Time Frame: July 10, 2019 Roll Left & Right (QC): 6 Sit to Lying (QC): 6 Lying-Sitting on Side/Bed(QC): 6 Sit to Stand (QC): 6 Chair/Nlh-qt-[place] Xfer(QC): 5 Walk 10 feet (QC): 5 Walk 50ft with 2 Turns (QC): 5 Walk 150 ft (QC): 5 1 Step (curb) (QC): 4 4 Steps (QC): 4 PT Plan Treatment/Plan Treatment Plan: Continue Plan of Care Treatment Plan: Bed Mobility, Education, Functional Activity [place], Functional Strength, Gait, Safety, Therapeutic Exercise, Transfers Treatment Duration: July 10, 2019 Frequency: 11 times per week Estimated Hrs Per Day: .25 hour per day Patient and/or Family Agrees t: Yes Time/GCodes Time In: 1358 Time Out: 1422 Total Billed Treatment Time: 24 Total Billed Treatment 1 visit EX 14 min GT 10 min ILEANA FRIED PT July 05, 2019 14:36
[2019-07-05 16:00] VITALS: BP 118/61
[2019-07-05] MEDS ORDERED: TAMSULOSIN 0.4 MG (FLOMAX) CAP PO SCH ×2 (18:00)
[2019-07-06] VITALS: BP 130/75
[2019-07-06] MEDS: NS IV 1000 ML 1,000 ML IV SCH (04:19)
[2019-07-06] MEDS: oxyCODONE/APAP 5/325MG (PERCOCET 5) TABLET PO PRN ×2 (04:20→09:01)
[2019-07-06] MEDS: MULTIVIT W/MINERALS TAB (THERAGRAN M) PO SCH (05:37)
[2019-07-06 06:39] LABS: CREATININE SERUM 1.3 MG/DL (0.60-1.30); POTASSIUM 3.6 MMOL/L (3.6-5.0)
--- NOTE | 2019-07-06 07:26 | Progress Note ---
Standard Progress Note Progress Notes/Assess & Plan Date Seen by a Provider: July 06, 2019 Time Seen by a Provider: 07:24 Progress/Assessment & Plan post op check no complaints radiographs--HW well positioned without fracture LLE--2 plus DP pulse with brisk cap refill. intact DF and PF of toes and ankle with intact sensation to light touch throughout s/p LTKA mobilize as able Final Diagnosis feeling better. voiding better Vital Signs Date Time Temp Pulse Resp B/P (MAP) Pulse Ox O2 Delivery O2 Flow Rate FiO2 07/06/19 00:00 36.0 88 18 130/75 (93) 96 Room Air 07/05/19 21:00 Room Air 07/05/19 16:00 37.0 96 20 118/61 (80) 94 Room Air 07/05/19 12:00 36.4 89 20 118/68 (85) 91 Room Air 07/05/19 10:00 19 07/05/19 09:00 Room Air 07/05/19 07:59 36.5 102 19 107/68 (81) 95 Room Air I & O 07/06/19 07:00 Intake Total 4100 ml Output Total 2150 ml Balance 1950 ml Laboratory Tests Test 07/06/19 05:52 Range/Units Hemoglobin 11.0 #L 13.3-17.7 G/DL Hematocrit 34 L 40-54 % Sodium Level 140 135-145 MMOL/L Potassium Level 3.6 3.6-5.0 MMOL/L Chloride Level 107 98-107 MMOL/L Carbon Dioxide Level 22 21-32 MMOL/L Anion Gap 11 5-14 MMOL/L Blood Urea Nitrogen 43 H 7-18 MG/DL Creatinine 1.30 0.60-1.30 MG/DL Estimat Glomerular Filtration Rate 55 BUN/Creatinine Ratio 33 Glucose Level 134 H 70-105 MG/DL Calcium Level 8.0 L 8.5-10.1 MG/DL LLE--dressing intact. able to perform SLR. no calf tenderness. Neg Sofiya's s/p LTKA with JUANA improved DC home today WILMAR CURRY MD July 06, 2019 07:26
--- NOTE | 2019-07-06 07:43 | DISCHARGE SUMMARY ---
DATE OF SERVICE: ADDENDUM The patient developed urinary retention with mild renal insufficiency. His creatinine is 2.48, therefore his discharge was held. Dr. Mart the hospitalist was consulted as well as Dr. Ames. He remained hospitalized for an additional 24 hours for IV fluids. His voiding improved and his creatinine returned to normal. Job ID: [id number] DocumentID: [id number] Dictated Date: 07/06/2019 07:27:56 Campus Police Officer Date: 07/06/2019 07:42:22 Dictated By: WILMAR CURRY MD
[2019-07-06 08:00] VITALS: BP 166/69
--- NOTE | 2019-07-06 08:50 | Physical Therapy Daily Note ---
PT Daily Note-Current Subjective Pt denies pain while supine and resting. Ready for PT. Pain Numeric Pain Scale: 4 Location: Left Location Body Site: Knee Pain Description: Ache, Dull Comment: only reporting pain with movement Mental Status Patient Orientation: Person, Place, Time, Situation Attachments: IV Transfers SCALE: Activities may be completed with or without assistive devices. 5-Gfosbsfjsy-twbrkxu completes the activity by him/herself with no assistance from a helper. 5-Set-up or Clean-up Assistance-helper sets up or cleans up; patient completes activity. [place] assists only prior to or following the activity. 4-Supervision or Touching Assistance-helper provides verbal cues and/or touching/steadying and/or contact guard assistance as patient completes activity. Assistance may be provided throughout the activity or intermittently. 3-Partial/Moderate Assistance-helper does LESS THAN HALF the effort. [place] lifts, holds or supports trunk or limbs, but provides less than half the effort. 2-Substantial/Maximal Assistance-helper does MORE THAN HALF the effort. [place] lifts or holds trunk or limbs and provides more than half the effort. 1-Szmvkkrwt-zlwled does ALL the effort. Patient does none of the effort to complete the activity. Or, the assistance of 2 or more helpers is required for the patient to complete the activity. If activity was not attempted, code reason: 7-Patient Refused. 9-Not Applicable-not attempted and the patient did not perform the activity before the current illness, exacerbation or injury. 10-Not Attempted due to Environmental Limitations-(lack of equipment, weather restraints, etc.). 88-Not Attempted due to Medical Conditions or Safety Concerns. Roll Left & Right (QC): 5 Sit to Lying (QC): 3 Lying to Sitting/Side of Bed(Q: 3 Sit to Stand (QC): 5 Chair/Qvg-fm-Hizsq Xfer(QC): 5 Toilet Transfer (QC): 5 Weight Bearing Left Lower Extremity: Left Weight Bearing/Tolerated Gait Training Does the Patient Walk?: Yes Distance: 150ft Walk 10 feet (QC): 5 Walk 50 ft with 2 Turns(QC): 5 Walk 150 ft (QC): 5 Gait Persons Needed: 1 Gait Assistive Device: FWW Exercises Supine Ex: LE Protocol Supine Reps: 15 Assessment Current Status: Good Progress (L) knee full extension with slight overpressure. 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 [employer] Labourer Goals PT [employer] Labourer Goals Time Frame: July 10, 2019 Roll Left & Right (QC): 6 Sit to Lying (QC): 6 Lying-Sitting on Side/Bed(QC): 6 Sit to Stand (QC): 6 Chair/Ewg-ox-Zyzwq Xfer(QC): 5 Walk 10 feet (QC): 5 Walk 50ft with 2 Turns (QC): 5 Walk 150 ft (QC): 5 1 Step (curb) (QC): 4 4 Steps (QC): 4 PT Plan Treatment/Plan Treatment Plan: Continue Plan of Care Treatment Plan: Bed Mobility, Education, Functional Activity [place], Functional Strength, Gait, Safety, Therapeutic Exercise, Transfers Treatment Duration: July 10, 2019 Frequency: 11 times per week Estimated Hrs Per Day: .25 hour per day Patient and/or Family Agrees t: Yes Time/GCodes Time In: 08 Time Out: 08 Total Billed Treatment Time: 30 Total Billed Treatment 1, ex (20), gt (10) JEAN CLAUDE FIELDS PT July 06, 2019 08:50
[2019-07-06] MEDS: ASPIRIN E.C. 81 MG (ECOTRIN) TAB PO SCH (09:00)
[2019-07-06] MEDS: SENNA W/DOCUSATE (SENOKOT S) TABLET PO SCH (09:01)
[2019-07-06] MEDS: ENOXAPARIN 30 MG/0.3 ML (LOVENOX) SYR SC SCH (09:02)
--- NOTE | 2019-07-06 10:19 | Progress Note - Urology ---
Progress Note-Urology Progress Notes/Assess & Plan Progress/Assessment & Plan VOIDING WELL, NO ISSUES. HAD GOOD BM. CREATININE DOWN TO 1.3. HOME TODAY ON FLOMAX AND FU AT OFFICE NEXT WEEK Final Diagnosis BPH OC PORRAS MD July 06, 2019 10:19
[2019-07-06] MEDS ORDERED: TMSL.4C PO (10:44)
[2019-07-06 11:15] VITALS: BP 166/69
--- NOTE | 2019-07-06 11:15 | NUR ---
DISMISSED PER W/C. DISCHARGE INSTRUCTIONS GIVEN, VERBALIZED UNDERSTANDING, IV DC, SITE WITHOUT REDNESS OR SWELLING, DRESSING CHANGED TO LEFT KNEE, SAMANTHA INTACT, ISLAND DRESSING APPLIED, HAD FORMED BROWN STOOL, INSTRUCTED ON POLAR ICE PACK, LOBITO HOSE AND IS AT HOME, VERBALIZED UNDERSTANDING, PRESCRIPTION GIVEN FOR PAIN MED, WALKER SENT WITH PATIENT, INSTRUCTED ON HOME HEALTH AND FOLLOW UP APPOINTMENTS WITH DR PORRAS AND DR CURRY
--- NOTE | 2019-07-06 11:19 | Progress Note - Hospitalist ---
Subjective HPI/CC On Admission Date Seen by Provider: July 06, 2019 Time Seen by Provider: 11:15 pt is a 68yoCM with a PMH of HTN and OA who was admitted for TKA due to left knee osteoarthritis. I am consulted for medical management of JUANA. His creatinine last week was 1.12 and this morning his creatinine is 2.48.He has not complaints. Overnight he had some urinary retention and urology was consulted. His symptoms have improved and he is requesting discharge home. Discussed options of follow up with his PCP at [facility] for labs or continued admission for fluids and labs in the AM. He originally requested discharge home with follow up tomorrow but he ultimately decided to stay. No other complaints or concerns. Doing well with PT. Subjective/Events-last exam Pt reports doing well. ready for DC. Objective Exam Vital Signs Vital Signs Date Time Temp Pulse Resp B/P (MAP) Pulse Ox O2 Delivery O2 Flow Rate FiO2 07/06/19 08:25 96 Room Air 07/06/19 08:00 36.5 96 20 166/69 (101) 07/03/19 12:36 3.00 Capillary Refill : Less Than 3 SecondsLess Than 3 Seconds General Appearance: No Apparent Distress, Obese Respiratory: Lungs Clear, No Respiratory Distress Cardiovascular: Regular Rate, Rhythm, No Murmur Neurologic/Psychiatric: Alert, Oriented x3 Results/Procedures Lab Laboratory Tests 07/06/19 05:52 Patient resulted labs reviewed. Assessment/Plan Assessment and Plan Assess & Plan/Chief Complaint JUANA- likely multifactorial from volume depletion and retention HTN Continue Flomax Creatine back to baseline with fluid resuscitation Follow up as an outpatient with PCP Osteoarthritis s/p TKA PT/OT Pain control Management per primary Clinical Quality Measures DVT/VTE Risk/Contraindication: Risk Factor Score Per Nursin RFS Level Per Nursing on Admit: 4+=Very High JOHNNY HERNANDEZ MD July 06, 2019 11:19
== END 2019-07-06 11:15 | disposition home health service (06) | DRG 470 ==
LOC: 4TH 07-03 06:30 → SURG 07-03 06:31 → 4TH 07-03 10:40
PROVIDERS: ADMIT Orthopaedic Surgery; ATTEND Orthopaedic Surgery
PROC: 0SRD0J9 Replacement of Left Knee Joint with Synthetic Substitute, Cemented, Open Approach (ICD-10-PCS; principal; 2019-07-03 07:37)
DX: M17.12 Unilateral primary osteoarthritis, left knee (principal); I11.9 Hypertensive heart disease without heart failure; G47.30 Sleep apnea, unspecified; N40.1 Benign prostatic hyperplasia with lower urinary tract symptoms; R33.9 Retention of urine, unspecified; N28.9 Disorder of kidney and ureter, unspecified; E86.9 Volume depletion, unspecified
CPT/HCPCS: 36415; 73560; 80048; 80053; 82565; 85014; 85018; 86850; 86900; 86901; 94664; 94760

== ENCOUNTER 2019-06-28 11:55 | Outpatient (CLI) | payer OTHER, MEDICARE ==
[~2019-06-28] VITALS: Ht 193 cm; Wt 145.0 kg
[2019-06-28] MEDS ORDERED: HYDR25TA4 PO (12:09)
[2019-06-28] MEDS ORDERED: VITA1CAP PO (12:09)
[2019-06-28] MEDS ORDERED: MTP25TSR PO (12:09)
[2019-06-28] MEDS ORDERED: MULT-1136 PO (12:09)
[2019-06-28] MEDS ORDERED: POTA99TA21 PO (12:09)
[2019-06-28] MEDS ORDERED: LISI40TA PO (12:09)
[2019-06-28 12:13] VITALS: BP 150/83
[2019-06-28 12:42] LABS: BASOPHILS % (AUTO) 1 % (0-10); EOSINOPHILS % (AUTO) 0 % (0-10); HEMATOCRIT 44 % (40-54); HEMOGLOBIN 14.9 G/DL (13.3-17.7); LYMPHOCYTES # (AUTO) 2.1 X 10^3 (1.0-4.0); LYMPHOCYTES % (AUTO) 25 % (12-44); MEAN CORPUSCULAR HEMOGLOBIN 30 PG (25-34); MEAN CORPUSCULAR HGB CONC 34 G/DL (32-36); MEAN CORPUSCULAR VOLUME 90 FL (80-99); MEAN PLATELET VOLUME 10.5 FL (7.4-10.4); MONOCYTES # (AUTO) 0.8 X 10^3 (0.0-1.0); MONOCYTES % (AUTO) 10 % (0-12); NEUTROPHILS # (AUTO) 5.2 X 10^3 (1.8-7.8); NEUTROPHILS % (AUTO) 64 % (42-75); PLATELET COUNT 184 10^3/uL (130-400); RED CELL DISTRIBUTION WIDTH 13.4 % (10.0-14.5); WHITE BLOOD COUNT 8.1 10^3/uL (4.3-11.0)
[2019-06-28 12:45] LABS: BILIRUBIN,URINE NEGATIVE (NEGATIVE); CLARITY,URINE CLEAR; COLOR,URINE YELLOW; GLUCOSE, URINE (UA) NEGATIVE (NEGATIVE); KETONES,URINE NEGATIVE (NEGATIVE); LEUKOCYTE ESTERASE ,URINE TRACE (NEGATIVE); NITRITE,URINE NEGATIVE (NEGATIVE); PROTEIN,URINE NEGATIVE (NEGATIVE)
--- NOTE | 2019-06-28 12:53 | Diagnostic Imaging Report ---
INDICATION: Preop for total knee replacement. Time of exam 12:47 PM No prior studies are available for comparison. The heart size is normal. The pulmonary vascularity is unremarkable. The lungs are clear. No infiltrate, effusion or pneumothorax is detected. Impression: No acute cardiopulmonary process is detected. Dictated by: Dictated on workstation # [id number]
[2019-06-28 13:03] LABS: BACTERIA,URINE TRACE /HPF
[2019-06-28 13:05] LABS: ALANINE AMINOTRANSFERASE 63 U/L (0-55); ALBUMIN 3.7 GM/DL (3.2-4.5); ALKALINE PHOSPHATASE 60 U/L (40-136); BILIRUBIN,TOTAL 0.7 MG/DL (0.1-1.0); BUN/CREATININE RATIO 17; CALCIUM 9.1 MG/DL (8.5-10.1); CARBON DIOXIDE 28 MMOL/L (21-32); CHLORIDE 103 MMOL/L (98-107); CREATININE SERUM 1.12 MG/DL (0.60-1.30); GFR ESTIMATED > 60; GLUCOSE 156 MG/DL (70-105); POTASSIUM 3.5 MMOL/L (3.6-5.0); SODIUM 140 MMOL/L (135-145); TOTAL PROTEIN 7.5 GM/DL (6.4-8.2)
[2019-06-28 13:08] LABS: ERYTHROCYTE SEDIMENTATION RATE 30 MM/HR (0-30)
== END 2019-06-28 15:13 | disposition home or self-care (01) ==
LOC: PREOP 11:55 → EDSTATUS 12:00 → PREOP 15:13
PROVIDERS: ATTEND Orthopaedic Surgery
DX: Z01.810 Encounter for preprocedural cardiovascular examination (principal); Z01.811 Encounter for preprocedural respiratory examination; Z01.812 Encounter for preprocedural laboratory examination; Z11.59 Encounter for screening for other viral diseases; Z11.2 Encounter for screening for other bacterial diseases; M17.12 Unilateral primary osteoarthritis, left knee; R53.83 Other fatigue; R82.90 Unspecified abnormal findings in urine
CPT/HCPCS: 36415; 71046; 80053; 81000; 85025; 85610; 85652; 86850; 86900; 86901; 87077; 87081; 87088; 87186; 87635; 93005

== ENCOUNTER → 2019-08-28 | Outpatient (CLI) | payer OTHER ==
[~2019-08-28] MED LIST changes: +HYDR25TA4 PO; +LISI40TA PO; +MTP25TSR PO; +MULT-1136 PO; +OXYC1TAB87 PO; +POTA99TA21 PO; +TMSL.4C PO; +VITA1CAP PO
--- NOTE | 2019-08-28 16:25 | Diagnostic Imaging Report ---
PROCEDURE: US left lower extremity venous. TECHNIQUE: Multiple real-time grayscale images were obtained over the left lower extremity in various projections. Additional duplex Doppler and color Doppler images were also obtained. INDICATION: Left leg swelling. Patient is status post knee replacement eight weeks ago. FINDINGS: There is no evidence of left lower extremity DVT. Left lower extremity deep venous system shows normal compressibility with normal response to augmentation and Valsalva. No fluid collection or mass is detected. IMPRESSION: No evidence of left lower extremity DVT. Dictated by: Dictated on workstation # [id number]
== END ==
LOC: RAD 14:20
PROVIDERS: ATTEND Nurse Practitioner Family
DX: R60.0 Localized edema (principal); Z96.652 Presence of left artificial knee joint

== ENCOUNTER → 2019-11-29 | Outpatient (CLI) | payer OTHER | LOC: CARD 13:00 | PROVIDERS: ATTEND Internal Medicine Cardiovascular Disease | DX: I10 Essential (primary) hypertension (principal); J44.9 Chronic obstructive pulmonary disease, unspecified; E78.1 Pure hyperglyceridemia; I51.7 Cardiomegaly; R60.9 Edema, unspecified | CPT/HCPCS: 93306 ==

== ENCOUNTER → 2020-02-24 | Outpatient (CLI) | payer OTHER ==
[~2020-02-24] VITALS: Ht 190 cm; Wt 147.0 kg
[~2020-02-24] MED LIST changes: +CATHETER FLUSH 10 ML SYR IV PRN; +REGADENOSON 0.4 MG/5 ML SYR (LEXISCAN) IV ONE
[2020-02-24 10:01] VITALS: BP 204/88
--- NOTE | 2020-02-24 14:28 | Cardiology Stress Test Report ---
Stress Test Report Date of Procedure/Referring: Date of Procedure: Feb 24, 2020 PCP Alicia Ghotra MD Admitting Physician No,Local Physician Baseline Blood Pressure: Blood Pressure Systolic: 204 Blood Pressure Diastolic: 88 Baseline Vitals Vital Signs Date Time Temp Pulse Resp B/P (MAP) Pulse Ox O2 Delivery O2 Flow Rate FiO2 02/24/20 10:01 54 204/88 (126) 98 Summary After explaining the procedure to the patient, he signed a consent and then brought to the stress nuclear laboratory. Patient received 0.4 mg Lexiscan for stress test, ECG, heart rate and blood pressure were monitored continuously. Resting and stress dose of radio tracer were injected, imaging was acquired and reviewed in short axis, horizontal long axis and vertical long axis views. TID: 0.98 SSS: 13 SDS: 10 EF: 53 Patient tolerated test well Baseline hypertension Reversible ischemia involving the inferior wall and apex Normal LV size, EF 53% ALICIA GHOTRA MD Feb 24, 2020 14:28
== END ==
LOC: CARD 08:30
PROVIDERS: ATTEND Internal Medicine Cardiovascular Disease
DX: I10 Essential (primary) hypertension (principal)
CPT/HCPCS: 78452; 93017; A9502

== ENCOUNTER 2020-03-18 10:00 | Day surgery (SDC) | payer OTHER ==
[2020-03-18] VITALS (9 sets, daily range): BP systolic 109–164; BP diastolic 63–109
[~2020-03-18] VITALS: Ht 190 cm; Wt 149.0 kg
[2020-03-18 08:12] LABS: HEMOGLOBIN 15.1 g/dL (13.3-17.7); MEAN PLATELET VOLUME 11.1 fL (9.0-12.2); WHITE BLOOD COUNT 11.9 10^3/uL (4.3-11.0)
[2020-03-18 08:23] LABS: INR 1.1 (0.8-1.4); PROTHROMBIN TIME PATIENT 14.4 SEC (12.2-14.7)
[2020-03-18 08:33] LABS: CALCIUM 9.1 MG/DL (8.5-10.1); CREATININE SERUM 1.24 MG/DL (0.60-1.30); POTASSIUM 4.2 MMOL/L (3.6-5.0); TOTAL PROTEIN 8.5 GM/DL (6.4-8.2)
--- NOTE | 2020-03-18 08:36 | Diagnostic Imaging Report ---
INDICATION: Coronary artery disease. TECHNIQUE/COMPARISON: A frontal chest was obtained at 8:06 AM and compared to 06/28/2019. FINDINGS: The heart and mediastinal silhouette are normal in appearance. The lungs appear clear. There is no pneumothorax or pleural fluid. IMPRESSION: No acute process in the chest. Dictated by: Dictated on workstation # [id number]
--- NOTE | 2020-03-18 08:37 | NUR ---
SPOKE WITH THE PT AND WENT OVER HIS HOME MED BOTTLES TO COMPLETE THE MED REC THE FOLLOWING ARE FILL DATES FROM [facility]: 01-27-2020 FUROSEMIDE 20MG #90/90DS 01-27-2020 POTASSIUM ER 10MEQ #90/90DS 02-11-2020 LISINOPRIL 40MG #90/90DS 02-11-2020 METOPROLOL ER SUCC #90/DS OTC MEDS: FISH OIL MTV VIT B COMPLEX
[~2020-03-18 10:00] MED LIST changes: -CATHETER FLUSH 10 ML SYR IV PRN; +FURO20TA4 PO; +HEParin (CATH LAB) 2,000 ML IV ONE; +HEParin 1000 UNIT/ML (10ML VIAL) FOR BOLUS ONE; +LIDOCAINE 1% INJ 20 ML 20 ML VIAL ONE; +MIDAZOLAM 5 MG/5 ML (VERSED) VIAL ONE; +NITRO DRIP 25000 MCG/D5W 250 ML IV ONE; +NS IV 1000 ML 1,000 ML IV SCH; +NS IV 1000 ML 1,000 ML ONE; +OMEG-160 PO; +POTA10TA36 PO; -REGADENOSON 0.4 MG/5 ML SYR (LEXISCAN) IV ONE; +VERAPAMIL 5 MG/2 ML (CALAN) VIAL IV ONE; +fentaNYL INJECTION 100 MCG/2 ML AMP ONE
--- NOTE | 2020-03-18 10:20 | Cardiac Procedure Note-CS/ASA ---
Pre-Procedure Note Pre-Op Procedure Note H&P Reviewed The H&P was reviewed, patient examined and no changes noted. Date H&P Reviewed: Mar 18, 2020 Time H&P Reviewed: 10:20 Conscious Sedation Pre-Proced Time 10:20 ASA Score 3 For ASA 3 and 4: Consider anesthesia and medical clearance. Also, for patients with a history of failed moderate sedation consider anesthesia. Airway Lungs Heart ASA score ASA 1: a normal healthy patient ASA 2: a patient with a mild systemic disease (mid diabetes, controlled hypertension, obesity x ASA 3: a patient with a severe systemic disease that limits activity (angina, COPD, prior Myocardial infarction) ASA 4: a patient with an incapacitating disease that is a constant threat to life (CHF, renal failure) ASA 5: a moribund patient not expected to survive 24 hrs. (ruptured aneurysm) ASA 6: a declared brain- patient whose organs are being harvested. For emergent operations, add the letter E after the classification Mallampati Classification Grade 3 Sedation Plan Analgesia, Amnesia, Plan communicated to team members, Discussed options with patient/fam, Discussed risks with patient/fam The patient is an appropriate candidate to undergo the planned procedure, sedation, and anesthesia. The patient immediately re-assessed prior to indication. ALICIA GAGE MD Mar 18, 2020 10:20
[2020-03-18] MEDS ORDERED: ATOR10TA PO (10:22)
--- NOTE | 2020-03-18 10:22 | Discharge Inst-Post CATH ---
Discharge Inst-CATH/EP Problems Reviewed?: Yes Post Cardiac Cath/EP D/C Inst Follow Up/Plan Appointment with Dr. Ghotra's office in 4 weeks <b>CARDIAC CATH/EP PROCEDURE DISCHARGE INSTRUCTIONS</b> ACTIVITY * Go Home directly and rest. * Limit activity of the leg (or wrist if it was used) for 7 days including aerobics, swimming, jogging, bicycling, etc. * Restrict stair-climbing for 7 days if possible, if not, climb up with your non-cath leg, then bring together on the same step. * Avoid lifting, pushing, pulling or excessive movement of the affected extremity for 7 days. * Customary sexual activity may be resumed after 2 days-use caution not to use a position that strains or causes pain to the affected extremity. * No driving for 24 hours. * NO SMOKING. * Avoid straining for bowel movements for 7 days. * Gentle walking on level ground is allowed. * Returning to work will depend on the type of procedure and the results. Your doctor will discuss this with you. CALL YOUR DOCTOR FOR ANY OF THE FOLLOWING: *If bleeding from the puncture site occurs- Apply gentle pressure to site with clean cloth and call your doctor or EMS. * If a knot or lump forms under the skin, increases in size, or causes pain. * If bruising appears to be worsening or moving further down your leg instead of disappearing. * Temperature above 101 F. CARE OF YOUR GROIN INCISION; * Bruising or purple discoloration of the skin near the puncture site is common. * You may shower only, no bathtub bathing for 5 days. Be careful to avoid slipping as your leg may feel stiff. * If a closure device was used on your femoral artery, please see the attached guide regarding care of the device and your leg. * Leave dressing on FOR 24 hours. CARE OF YOUR WRIST INCISION; * Bruising or purple discoloration of the skin near the puncture site is common. * You may shower. * DO NOT submerge wrist. * Leave dressing on FOR 24 hours. ALICIA GHOTRA MD Mar 18, 2020 10:22
--- NOTE | 2020-03-18 10:26 | Cardiac Cath Report ---
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 Scheduled for cardiac catheterization. After explaining the procedure to the patient, all pros and cons were explained, all questions were answered. The patient signed the consent and then he was placed on the cardiac catheterization laboratory. Groin was prepped SL fashion local anesthesia was used. Sheath placed in the a right radial artery, Levant catheter was used, was successful in advancing to the left ventricular cavity, l eft ventricular gram was not done, pressure was measured pullback LV to aorta was measured then I intubated the left coronary system and did angiogram done the right coronary system and angiogram pulled back to the aortic arch I decided to do aortic arch angiogram due to significant tortuosity I noted during the procedure At the end of the procedure the sheath was removed. Vascular band was used FINDINGS: Hemodynamics LV 118/11, end-diastolic pressure of 11 Aorta 95/61 mean of 75 ANATOMY: Left Main is free of obstructive disease Left Anterior Descending is slightly tortuous with mild disease no obstructive disease Left Circumflex is free of obstructive disease Right Coronory Artery is tortuous artery with mild disease nonobstructive disease LV Gram was not done, pressure was measured Aorta evaluation done with aortic arch angiogram showed slightly prominent aortic arch, there is no dissection or aneurysm, origin of the innominate artery and left carotid artery appeared normal, the left subclavian artery was not well visualized CONCLUSION: 1. Slightly tortuous coronary system with nonobstructive disease 2. Normal left ventricular end-diastolic pressure 3. Mild hypertensive changes in the aortic arch, no dissection or aneurysm DISCUSSION AND RECOMMENDATION: Maximize medical therapy, LDL was 102, started on Lipitor 10 mg daily. Anesthesia Type: Conscious Sedation Estimated blood loss (mL): 10 ml Contrast Amount: 65 ml Total Radiation Dose: 731 mGy Post-Procedure Diagnosis Post-operative diagnosis: Coronary artery disease Hypertension Hyperlipidemia Obesity ALICIA GAGE MD Mar 18, 2020 10:26
[2020-03-18] MEDS ORDERED: NS IV 1000 ML 1,000 ML IV SCH (10:30)
== END 2020-03-18 13:30 | disposition home or self-care (01) ==
LOC: CATH 10:00 → SDC 10:14 → CATH 13:30
PROVIDERS: ATTEND Internal Medicine Cardiovascular Disease
DX: I25.10 Atherosclerotic heart disease of native coronary artery without angina pectoris (principal); I10 Essential (primary) hypertension; E78.5 Hyperlipidemia, unspecified; E78.1 Pure hyperglyceridemia; J44.9 Chronic obstructive pulmonary disease, unspecified; G47.33 Obstructive sleep apnea (adult) (pediatric); R94.39 Abnormal result of other cardiovascular function study; E66.9 Obesity, unspecified; Z68.41 Body mass index [BMI] 40.0-44.9, adult; Z79.899 Other long term (current) drug therapy
CPT/HCPCS: 36221; 71045; 80053; 80061; 85027; 85610; 85730; 87081; 93458; C1894; 36415

== ENCOUNTER 2020-07-23 15:57 | Emergency (ER) | payer OTHER ==
[~2020-07-23] VITALS: Ht 182.8 cm; Wt 90.9 kg
[~2020-07-23 15:57] MED LIST changes: +ATOR10TA PO; -HEParin (CATH LAB) 2,000 ML IV ONE; -HEParin 1000 UNIT/ML (10ML VIAL) FOR BOLUS ONE; -LIDOCAINE 1% INJ 20 ML 20 ML VIAL ONE; -LISI40TA PO; +LISI40TA9 PO; -MIDAZOLAM 5 MG/5 ML (VERSED) VIAL ONE; -NITRO DRIP 25000 MCG/D5W 250 ML IV ONE; -NS IV 1000 ML 1,000 ML IV SCH; -NS IV 1000 ML 1,000 ML ONE; -VERAPAMIL 5 MG/2 ML (CALAN) VIAL IV ONE; -fentaNYL INJECTION 100 MCG/2 ML AMP ONE
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
[2020-07-23] MEDS ORDERED: TETANUS,DIPTH,PERTUSS P/F (BOOSTRIX) 0.5 ML VIAL IM ONE (16:30)
--- NOTE | 2020-07-23 17:03 | Diagnostic Imaging Report ---
Clinical indication: Patient fell and hit posterior aspect of the head. Exam: Axial Head CT without IV contrast with sagittal and coronal reformations. Axial CT scan of the cervical spine with sagittal and coronal reformations. Auto Exposure Controls were utilized during the CT exam to meet ALARA standards for radiation dose reduction. Comparison: Head CT without contrast dated 10/30/2007. Findings: Head CT: There is no evidence of acute cerebral infarct, intracranial hemorrhage, or gross mass effect. The brain parenchymal volume appears appropriate for patient's age. There is normal seymour-white matter distinction. There is no significant midline shift or herniation. There is no evidence of hydrocephalus. The basal cisterns are unremarkable. The skull, extracranial soft tissue, and orbits are unremarkable. There is mild mucosal thickening involving both maxillary sinuses and ethmoid sinus. Temporal bones show no significant abnormality. Cervical spine: There is no acute cervical spine fracture. There is degenerative grade 1 anterolisthesis of C2 on C3 and C3 on C4 with no pars defects seen. There is straightening of the cervical spine posture. There is intervertebral spurs involving the cervical spine and facet arthropathy. There is at least mild central canal narrowing at C4-C5 level with mild to moderate central canal narrowing at the C5-C6 level due to diffuse disk bulge and posterior spurs. There is multilevel moderate to severe neural foramen narrowing due to uncinate spurs and facet arthropathy. There is no significant neck soft tissue abnormality. Visualized upper lung estevez are clear. Impression: 1: There is no evidence of acute intracranial process. There is no skull fracture. 3: There is multilevel cervical spine degenerative disease with no acute fracture. Dictated by: Dictated on workstation # [id number]
[2020-07-23 17:15] VITALS: BP 185/90
== END 2020-07-23 17:13 | disposition home or self-care (01) ==
LOC: EDUNIT# 15:57 → ER 15:58
DX: S01.01XA Laceration without foreign body of scalp, initial encounter (principal); I10 Essential (primary) hypertension; J44.9 Chronic obstructive pulmonary disease, unspecified; G47.30 Sleep apnea, unspecified; Z99.89 Dependence on other enabling machines and devices; Z79.899 Other long term (current) drug therapy; W10.9XXA Fall (on) (from) unspecified stairs and steps, initial encounter
CPT/HCPCS: 70450; 72125; 90471; 90715

== ENCOUNTER 2020-07-29 11:13 | Emergency (ER) | payer OTHER ==
[~2020-07-29] VITALS: Ht 193 cm; Wt 133.4 kg
[2020-07-29 11:23] VITALS: BP 169/80
== END 2020-07-29 11:29 | disposition home or self-care (01) ==
LOC: EDUNIT# 11:13 → ER 11:14
DX: Z48.02 Encounter for removal of sutures (principal)
CPT/HCPCS: 99281

== ENCOUNTER 2020-10-09 05:39 | Outpatient (CLI) | payer OTHER ==
[~2020-10-09] VITALS: Ht 193 cm; Wt 133.4 kg
== END 2020-10-09 13:25 | disposition home or self-care (01) ==
LOC: PREOP 05:39
PROVIDERS: ATTEND Surgery
DX: Z01.818 Encounter for other preprocedural examination (principal)

== ENCOUNTER 2020-10-14 10:22 | Day surgery (SDC) | payer MEDICARE, OTHER ==
[2020-10-14] VITALS (24 sets, daily range): BP systolic 132–237; BP diastolic 70–119
[~2020-10-14] VITALS: Ht 193 cm; Wt 133.4 kg
[2020-10-14] MEDS ORDERED: NS IV 500 ML 500 ML IV PRN (10:45)
[2020-10-14] MEDS ORDERED: MIDAZOLAM 5 MG/5 ML (VERSED) VIAL IV ONE (10:45)
[2020-10-14] MEDS ORDERED: LIDOCAINE JELLY 2% 6 ML SYRINGE MM PRN (10:45)
[2020-10-14] MEDS ORDERED: fentaNYL INJ 100 MCG/2 ML AMP IVP ONE (10:45)
[2020-10-14] MEDS ORDERED: NS IV 500 ML 500 ML ONE (10:47)
--- NOTE | 2020-10-14 11:04 | Progress Note-Pre Operative ---
Pre-Operative Progress Note H&P Reviewed The H&P was reviewed, patient examined and no changes noted. Date Seen by Provider: Oct 14, 2020 Time Seen by Provider: 11:00 Date H&P Reviewed: Oct 14, 2020 Time H&P Reviewed: 11:00 Pre-Operative Diagnosis: screening NALDO Ovalle MD Oct 14, 2020 11:04
--- NOTE | 2020-10-14 11:04 | Conscious Sedation/ASA ---
Conscious Sedation Pre-Proced Time 11:00 ASA Score 2 For ASA 3 and 4: Consider anesthesia and medical clearance. Also, for patients with a history of failed moderate sedation consider anesthesia. Airway Lungs Heart ASA score ASA 1: a normal healthy patient ASA 2: a patient with a mild systemic disease (mid diabetes, controlled hypertension, obesity ASA 3: a patient with a severe systemic disease that limits activity (angina, COPD, prior Myocardial infarction) ASA 4: a patient with an incapacitating disease that is a constant threat to life (CHF, renal failure) ASA 5: a moribund patient not expected to survive 24 hrs. (ruptured aneurysm) ASA 6: a declared brain- patient whose organs are being harvested. For emergent operations, add the letter E after the classification Mallampati Classification Grade 2 Sedation Plan Analgesia, Amnesia, Plan communicated to team members, Discussed options with patient/fam, Discussed risks with patient/fam The patient is an appropriate candidate to undergo the planned procedure, sedation, and anesthesia. The patient immediately re-assessed prior to indication. NALDO DANG MD Oct 14, 2020 11:04
--- NOTE | 2020-10-14 11:05 | Discharge Inst-Surgical ---
D/C Lap Instructions-LAURENCE Follow Up Activity as tolerated High Fiber Diet 25g or more per day Avoid Alcohol, Caffeine, Spicy [place] and Acid foods. Drink 64 fluid oz or more of fluids per day. Symptoms to Report: Fever over 101 degree F, Nausea/Vomiting If any problems/questions: Contact your physician or go to Emergency Room NALDO DANG MD Oct 14, 2020 11:05
[2020-10-14] MEDS ORDERED: ONDANSETRON 4 MG (ZOFRAN) ORAL DISSOLVE TAB PO PRN (11:15)
[2020-10-14] MEDS ORDERED: ONDANSETRON 4 MG/2 ML (SDV) Z0FRAN IVP PRN (11:15)
[2020-10-14] MEDS ORDERED: MIDAZOLAM 5 MG/5 ML (VERSED) VIAL ONE (12:38)
[2020-10-14] MEDS ORDERED: hydrALAZINE (APESOLINE) 20 MG/ML VIAL ONE (12:56)
[2020-10-14] MEDS ORDERED: KETAMINE SYRINGE 50 MG/5 ML SYRINGE ONE (12:57)
[2020-10-14] MEDS ORDERED: PROPOFOL INJECTION 50 ML IV ONE (12:58)
--- NOTE | 2020-10-14 13:28 | Progress Note ---
Standard Progress Note Progress Notes/Assess & Plan Date Seen by a Provider: Oct 14, 2020 Time Seen by a Provider: 13:00 Progress/Assessment & Plan consulted for rescue sedation. pt received 15mg versed and 200 mg fentanyl prior to my arrival. pt moving during procedure and appears uncomfortable. bp 225/120. hr 55. apresoline 10mg given along with 10mg ketamine and a propofol drip started. tolerated rest of procedure. rescue time [id number]. asa 3. report to bobby antunez. LLOYD BLACK CRNA Oct 14, 2020 13:28
--- NOTE | 2020-10-14 13:34 | Progress Note-Post Operative ---
Post-Operative Progess Note Surgeon (s)/Hog Trader (s) Surgeon NALDO DANG MD Hog Trader: none Pre-Operative Diagnosis screening colo Post-Operative Diagnosis mild chronic stage 2 ext and int hemorrhoids, rectosigmoid pedunculated polyp(>1cm) Procedure & Operative Findings Date of Procedure 10/14/20 Procedure Performed/Findings colonoscopy with snare polypectomy Anesthesia Type mac Estimated Blood Loss Estimated blood loss (mL): minimal Specimens/Packing Specimens Removed rectosigmoid polyp NALDO DANG MD Oct 14, 2020 13:34
--- NOTE | 2020-10-14 17:19 | OPERATIVE REPORT ---
DATE OF SERVICE: 10/14/2020 ATTENDING PRIMARY CARE PHYSICIAN: Dr. Paramjit Fleming. PREOPERATIVE DIAGNOSIS: Screening colonoscopy. POSTOPERATIVE DIAGNOSIS: Large rectosigmoid polyp versus pedunculated submucosal lipoma. PROCEDURES PERFORMED: Colonoscopy with snare polypectomy. SURGEON: Naldo Dang MD. ANESTHESIA: Monitored anesthesia care. ESTIMATED BLOOD LOSS: Minimal. FINDINGS: Large pedunculated polyp of the rectosigmoid junction versus submucosal lipoma. DISPOSITION: The patient tolerated the procedure well. INDICATION FOR PROCEDURE: The patient is a 70-year-old male referred to us for screening colonoscopy. His last colonoscopy was approximately 10 years ago and he believes this to be normal. He states that he is otherwise doing well, does not report any major issues with diarrhea nor constipation as well as no red blood per rectum nor any dark tarry stools. He also does not report any family history of colon cancer. DESCRIPTION OF PROCEDURE: The patient was brought to the endoscopy suite and laid in the left lateral decubitus position. After adequate IV pain and sedative medications and monitored anesthesia care, a digital rectal examination was performed. Mild chronic stage II external and internal hemorrhoids were identified, which were not actively edematous nor inflamed and no bleeding. Normal sphincter tone was felt and there were no palpable masses. Prostate gland was palpable and appeared normal. The endoscope was then intubated, the anus and rectum gently insufflated. The endoscope was then advanced through the valves of Britt of the rectum. At the rectosigmoid junction, a pedunculated polyp, which was smooth and round, was identified. This was rather large. This was removed by snare polypectomy and electrocautery with fat within the base, which may indicate a lipoma; however, uncertain. The endoscope was then advanced through the sigmoid colon, where no diverticulosis was identified. The endoscope was then advanced to the remainder of the descending, transverse and ascending colon to the cecum. These segments were normal. The endoscope was then slowly withdrawn while taking a second look and suctioning of residual air with no additional findings. The patient tolerated the procedure well. We were unable to retrieve the polyp due to the size and we will proceed with a tap water enema and screen the stool for the polyp. We will await the biopsy results of the polyp, which we will determine when to proceed with his next colonoscopy. Job ID: [id number] DocumentID: [id number] Dictated Date: 10/14/2020 13:24:55 Bar Manager Date: 10/14/2020 17:18:29 Dictated By: NALDO DANG MD MTDD
--- NOTE | 2020-10-19 16:15 | Anesthesia-General Post-Op ---
MAC Significant Intra-Op Events Notes anesthesia postop addendum on 10-14-20 at 1345 mac Patient Condition Mental Status/LOC: Same as Preop Cardiovascular: Satisfactory Nausea/Vomiting: Absent Respiratory: Satisfactory Pain: Controlled Complications: Absent Post Op Complications Complications None Follow Up Care/Instructions Patient Instructions None needed. Anesthesiology Discharge Order Discharge Order Patient is doing well, no complaints, stable vital signs, no apparent adverse anesthesia problems. No complications reported per nursing. VERONA SANTAMARIA CRNA Oct 19, 2020 16:15
== END 2020-10-14 15:05 | disposition home or self-care (01) ==
LOC: ENDO 10:22
PROVIDERS: ATTEND Surgery
DX: Z12.11 Encounter for screening for malignant neoplasm of colon (principal); K63.5 Polyp of colon; K64.1 Second degree hemorrhoids; E78.00 Pure hypercholesterolemia, unspecified; I10 Essential (primary) hypertension; M19.90 Unspecified osteoarthritis, unspecified site; Z79.899 Other long term (current) drug therapy

== ENCOUNTER → 2021-04-27 | Outpatient (CLI) | payer OTHER ==
[~2021-04-27] MED LIST changes: -POTA10TA36 PO; +POTA10TA37 PO; -POTA99TA21 PO; +POTA99TA26 PO
--- NOTE | 2021-04-27 13:37 | Diagnostic Imaging Report ---
PROCEDURE: US Renal Bilateral. TECHNIQUE: Multiple real-time grayscale images were obtained over the kidneys in various projections bilaterally. INDICATION: Benign prostatic hypertrophy COMPARISON: CT from 03/21/2014 FINDINGS: The right kidney measures 13.4 cm in length. There is no hydronephrosis or acute abnormality seen. The left kidney measures 13 cm in length. There is no hydronephrosis or other acute abnormality. There is no free fluid. The prevoid bladder volume is 234 mL. The post void volume is 84 mL. Bilateral ureteral jets are seen. The prostate is faintly visible, but largely obscured. No filling defects are seen in the bladder. IMPRESSION: 1. No hydronephrosis or acute renal abnormality. 2. Mildly increased post void residual is considered within normal limits for the patient's age. Dictated by: Dictated on workstation # [id number]
== END ==
LOC: RAD 12:45
PROVIDERS: ATTEND Nurse Practitioner Family
DX: N40.1 Benign prostatic hyperplasia with lower urinary tract symptoms (principal)
CPT/HCPCS: 76770